=== PATIENT | female | born 1935 | race Caucasian/White ===

== ENCOUNTER 2017-07-17 04:58 | Emergency (ER) | payer MEDICARE, OTHER ==
[2017-07-17] MEDS ORDERED: Acetaminophen 325 MG Tab PO ONE (05:23)
[2017-07-17] MEDS ORDERED: Acetaminophen/HYDROcodone 325-5 MG Tab PO ONE (05:24)
[2017-07-17 05:43] VITALS: BP 115/86
--- NOTE | 2017-07-17 05:57 | EDM.PDOC ---
ED HPI GENERAL MEDICAL PROBLEM - General Chief Complaint: Lower Extremity Injury/Pain Stated Complaint: [facility] Time Seen by Provider: 07/17/17 05:10 Source of Information: Reports: Patient, RN Notes Reviewed - History of Present Illness INITIAL COMMENTS - FREE TEXT/NARRATIVE: 82-year-old lady comes in by [facility] with concern about worsening right knee pain. she does have chronic right knee discomfort worse with motion and weightbearing. However over the last few days this has become worse than usual. Now she is having quite significant discomfort with any type of motion making it hard for her to get up and out of the chair or into or out of bed. Also her legs have been swelling more than usual for the past 2-3 weeks, "ever since [place]". She does have history of hypertension, chronic atrial fibrillation, does have a pacemaker and does take daily baby aspirin and Coumadin in addition to her other medications. No recent fall or injury that she is aware of. She does use a walker at home to help with her ambulation. When asked about what she is been taking for discomfort she states nothing recently. She has taken occasional Tylenol in the past. Right Knee Pain Score (Numeric/FACES): 8 - Related Data Allergies Allergy/AdvReac Type Severity Reaction Status Date / Time No Known Allergies Allergy Verified 07/17/17 05:02 Home Meds: Home Meds Aspirin [Halfprin] 81 mg PO DAILY 07/21/14 [History] Diltiazem HCl [Diltiazem 24Hr ER] 180 mg PO DAILY 07/21/14 [History] Losartan [Cozaar] 50 mg PO DAILY 07/21/14 [History] Metoprolol Succinate 50 mg PO DAILY 07/21/14 [History] Warfarin [Coumadin] 5 mg PO ASDIRECTED 07/21/14 [History] Fluticasone Propionate [Flovent HFA 44 mcg] 2 puff INH DAILY PRN 07/29/14 [ History] Furosemide [Lasix] 2 tab PO BID 07/29/14 [History] Warfarin [Coumadin] 7.5 mg PO ASDIRECTED 07/29/14 [History] atorvaSTATin [Lipitor] 1 tab PO DAILY 07/29/14 [History] Meclizine [Antivert] 25 mg PO Q6H PRN #30 tablet 04/09/16 [Rx] Potassium Chloride [Klor-Con M20] 20 meq PO BID 07/17/17 [History] Past Medical History HEENT History: Reports: Cataract, Hard of Hearing, Impaired Vision Cardiovascular History: Reports: High Cholesterol, Hypertension, Pacemaker Respiratory History: Reports: Bronchitis, Recurrent, SOB Musculoskeletal History: Reports: Arthritis Endocrine/Metabolic History: Reports: Diabetes, Type II, Obesity/BMI 30+ - Past Surgical History GI Surgical History: Reports: Cholecystectomy Social & Family History - Family History Family Medical History: Noncontributory - Tobacco Use Smoking Status *Q: Never Smoker Years of Tobacco use: 10 Used Tobacco, but Quit: Yes Month Tobacco Last Used: 20 years ago Second Hand Smoke Exposure: Yes - Caffeine Use Caffeine Use: Reports: Coffee, Tea Other Caffeine Use: coffee cup every other day;tea every other day - Alcohol Use Days Per Week of Alcohol Use: 0 - Recreational Drug Use Recreational Drug Use: No Review of Systems - Review of Systems Review Of Systems: See Below Constitutional: Denies: Chills, Diaphoresis, Fever Mouth/Throat: Reports: No Symptoms Respiratory: Reports: Shortness of Breath (mild, exertional, chronically) Cardiovascular: Reports: Edema (Worsening swelling both lower legs over the last 2-3 weeks). Denies: Chest Pain GI/Abdominal: Denies: Abdominal Pain, Nausea, Vomiting Musculoskeletal: Reports: Joint Pain (Right knee). Denies: Leg Pain Skin: Reports: Bruising (Scattered small areas of bruising both arms) Neurological: Reports: No Symptoms ED EXAM, GENERAL - Physical Exam Exam: See Below General Appearance: Alert, No Apparent Distress Eye Exam: Bilateral Eye: PERRL Throat/Mouth: Normal Inspection Head: Atraumatic Neck: Supple Respiratory/Chest: No Respiratory Distress. No: Rales, Rhonchi, Wheezing Cardiovascular: Irregularly Irregular GI/Abdominal: Non-Tender Extremities: Pedal Edema (Moderate bilateral), Other (She has for a mild tenderness of the and right knee medially and anteriorly, no visible effusion at this time, not warm or erythematous, there is pain with flexion and extension ) Skin Exam: Warm, Dry, Normal Color Course - Vital Signs Last Recorded V/S: Last Vital Signs Temp 97.6 F 07/17/17 05:03 Pulse 87 07/17/17 05:03 Resp 18 07/17/17 05:03 BP 115/86 07/17/17 05:03 Pulse Ox 92 L 07/17/17 05:03 - Orders/Labs/Meds Orders: Active Orders 24 hr Category Date Time Status Knee Min 4V Rt [CR] Stat Exams 07/17/17 05:23 Taken Labs: Laboratory Tests 07/17/17 07/17/17 07/17/17 Range/Units 05:38 05:38 05:38 WBC 7.64 (3.98-10.04) K/mm3 RBC 4.11 (3.98-5.22) M/mm3 Hgb 10.5 L (11.2-15.7) gm/L Hct 33.7 L (34.1-44.9) % MCV 82.0 (79.4-94.8) fl MCH 25.5 L (25.6-32.2) pg MCHC 31.2 L (32.2-35.5) g/dl RDW Std Deviation 49.3 H (36.4-46.3) fL Plt Count 138 L (182-369) K/mm3 MPV 10.8 (9.4-12.3) fl Neut % (Auto) 72.5 H (34.0-71.1) % Lymph % (Auto) 10.5 L (19.3-51.7) % Bacon % (Auto) 12.4 (4.7-12.5) % Eos % (Auto) 3.8 (0.7-5.8) Baso % (Auto) 0.4 (0.1-1.2) % Neut # (Auto) 5.54 (1.56-6.13) K/mm3 Lymph # (Auto) 0.80 L (1.18-3.74) K/mm3 Bacon # (Auto) 0.95 H (0.24-0.36) K/mm3 Eos # (Auto) 0.29 (0.04-0.36) K/mm3 Baso # (Auto) 0.03 (0.01-0.08) K/mm3 PT 23.4 H (8.0-13.0) SECONDS INR 2.05 Sodium 142 (136-145) mEq/L Potassium 3.6 (3.5-5.1) mEq/L Chloride 103 (98-107) mEq/L Carbon Dioxide 28 (21-32) mEq/L Anion Gap 14.6 (5-15) BUN 60 H (7-18) mg/dL Creatinine 1.3 H (0.55-1.02) mg/dL Est Cr Clr Drug Dosing 28.99 mL/min Estimated GFR (MDRD) 39 (>60) mL/min BUN/Creatinine Ratio 46.2 H (14-18) Glucose 153 H (83-115) mg/dL Calcium 8.6 (8.5-10.1) mg/dL Total Bilirubin 0.9 (0.2-1.0) mg/dL AST 19 (15-37) U/L ALT 25 (14-59) U/L Alkaline Phosphatase 91 (46-116) U/L Total Protein 6.9 (6.4-8.2) g/dl Albumin 3.5 (3.4-5.0) g/dl Globulin 3.4 gm/dL Albumin/Globulin Ratio 1.0 (1-2) Meds: Medications Discontinued Medications Generic Name Dose Route Start Last Admin Trade Name Vicky PRN Reason Stop Dose Admin Acetaminophen 625 mg 07/17/17 05:23 07/17/17 05:33 Tylenol PO 07/17/17 05:24 625 mg NOW ONE Administration Hydrocodone Bitart/Acetaminophen 1 tab 07/17/17 05:24 07/17/17 05:40 [place] 325-5 Mg PO 07/17/17 05:25 1 tab ONETIME ONE Administration - Re-Assessments/Exams Free Text/Narrative Re-Assessment/Exam: 07/17/17 06:56. Patient has significant leg edema, I do not hear rales but am sure she has some mild pulmonary congestion as well. When I asked her about how she is currently taking her furosemide she admits that she is only taking the furosemide once daily rather than the twice daily prescribed because it "makes me pee too much". It sounds like she also does have some chronic incontinence issues which also is not helping her. I did discuss the need for her to go back to the twice daily furosemide as prescribed to help her get rid of the extra fluid which will take at least some of the stress off of her leg and knee. Knee x-rays show tremendous degenerative arthritis, especially of the medial loadbearing area of her knee joint, looks like it is about at bone-on- bone. I am going to put her on very short-term prednisone 20 mg daily for 5 days. I've recommended that she see Dr. Briceno, Orthopedist at [facility] with consideration for possible steroid injection. Discharge instructions as documented. Departure - Departure Time of Disposition: 06:46 Disposition: Home, Self-Care 01 Condition: Fair Clinical Impression: Leg edema, Afib, Atrial fibrillation Degenerative arthritis of right knee Qualifiers: Osteoarthritis type: primary Qualified Code(s): M17.11 - Unilateral primary osteoarthritis, right knee - Discharge Information Referrals: Nara Yeager MD [Primary Care Provider] - Forms: ED Department Discharge Additional Instructions: 2 tablets furosemide twice daily as previously prescribed, first dose right away in the morning and second dose noon or early afternoon,watch your salt extremely carefully, any canned soup or vegetables are extremely high in sodium. Avoid the flour and sugar foods as best you can, keep legs elevated as much as possible when not walking, continue to use your walker to lessen the stress load on your knee., Prednisone 20 mg daily for 5 days, hydrocodone one half tablet 2-3 times daily as needed for severe right knee pain, check your weight when you get home and then keep a daily record if possible to monitor fluid weight loss, follow-up with Dr. Yeager in about 7-10 days, call for appointment, see Dr. Briceno, Orthopedist at [facility] first available appointment. Return to ED as needed. - My Orders Last 24 Hours: My Active Orders 07/17/17 05:23 Knee Min 4V Rt [CR] Stat - Assessment/Plan Last 24 Hours: My Active Orders 07/17/17 05:23 Knee Min 4V Rt [CR] Stat
--- NOTE | 2017-07-17 07:06 | CR ---
Right knee: Four views of the right knee were obtained. Comparison: No prior right knee exam. Severe medial joint space narrowing is noted with medial osteophytes. Lateral joint space is preserved. Minimal spur off the anterior tibial tuberosity and patella compatible with spurring at the attachment of the patellar tendon. No joint effusion is seen. No acute abnormality is identified. Impression: 1. Severe degenerative change within the medial joint. 2. Osteopenia with no acute abnormality being seen. Diagnostic code #2
== END 2017-07-17 07:16 | disposition home or self-care (01) ==
LOC: JD.ED 04:58
DX: I48.91 Unspecified atrial fibrillation (principal); M17.11 Unilateral primary osteoarthritis, right knee; I10 Essential (primary) hypertension; E78.00 Pure hypercholesterolemia, unspecified; E11.9 Type 2 diabetes mellitus without complications; Z79.82 Long term (current) use of aspirin; Z79.01 Long term (current) use of anticoagulants; Z79.899 Other long term (current) drug therapy
CPT/HCPCS: 36415; 73564; 80053; 85025; 85610; 99285; A9270; 99284

== ENCOUNTER 2018-01-13 19:44 | Emergency (ER) | payer MEDICARE, OTHER ==
[2018-01-13 20:42] VITALS: BP 128/72
[2018-01-13] MEDS ORDERED: Ibuprofen 600 MG Tab PO ONE (21:11)
--- NOTE | 2018-01-13 21:17 | EDM.PDOC ---
ED HPI GENERAL MEDICAL PROBLEM - General Chief Complaint: Lower Extremity Injury/Pain Stated Complaint: CAN'T BEND RIGHT KNEE/LEG SWOLLEN Time Seen by Provider: 01/13/18 20:46 Source of Information: Reports: Patient, Family (Daughter) History Limitations: Reports: Altered Mental Status (Patient easily confused, forgetful) - History of Present Illness INITIAL COMMENTS - FREE TEXT/NARRATIVE: The patient states that she has chronic right knee pain, but that it has been worse over the past 2 days, with associated swelling, to the point that she can hardly walk on it or bend it. The patient ordinarily ambulates with a walker. She has not taken any [id number] pain medications for her symptoms. She states that she has had similar flares of pain on several occasions, and upon medical evaluation, is told that it is a flare of her arthritis. She states that when she gets such flares, she is usually prescribed "pills". The patient states that she a history of arthritis in the right knee, and is status post an arthroscopic bone chip removal around 2007. Medical records finds that the patient was seen by Dr. Elliot Ashton on 2017 for similar right knee pain and edema. X-rays found advanced degenerative arthritis. She was referred to Dr. Briceno, but states that she did not follow- up with him. The patient's daughter states that it was winter, therefore the patient didn't want to go, and by the time summer came around, she was feeling better and simply did not want to follow-up. The patient states that she has not had any orthopedic consultation since her arthroscopic surgery around 2007, and therefore has never been told that she might benefit from a knee replacement. The patient has chronic atrial fibrillation, on Coumadin. Her last INR was 2.1 this past week. The patient's PCP is Dr. Nara Yeager. Treatments FOREIGN EXCHANGE POSITION CLERK: Reports: Other (see below) Other Treatments FOREIGN EXCHANGE POSITION CLERK: none Right Knee Pain Score (Numeric/FACES): 10 - Related Data Allergies Allergy/AdvReac Type Severity Reaction Status Date / Time No Known Allergies Allergy Verified 07/17/17 05:02 Home Meds: Home Meds Aspirin [Halfprin] 81 mg PO DAILY 07/21/14 [History] Diltiazem HCl [Diltiazem 24Hr ER] 180 mg PO DAILY 07/21/14 [History] Losartan [Cozaar] 50 mg PO DAILY 07/21/14 [History] Metoprolol Succinate 50 mg PO DAILY 07/21/14 [History] Warfarin [Coumadin] 5 mg PO ASDIRECTED 07/21/14 [History] Fluticasone Propionate [Flovent HFA 44 mcg] 2 puff INH DAILY PRN 07/29/14 [ History] Furosemide [Lasix] 2 tab PO BID 07/29/14 [History] Warfarin [Coumadin] 7.5 mg PO ASDIRECTED 07/29/14 [History] atorvaSTATin [Lipitor] 1 tab PO DAILY 07/29/14 [History] Meclizine [Antivert] 25 mg PO Q6H PRN #30 tablet 04/09/16 [Rx] Potassium Chloride [Klor-Con M20] 20 meq PO BID 07/17/17 [History] Past Medical History HEENT History: Reports: Hard of Hearing, Impaired Vision Cardiovascular History: Reports: Afib (chronic), Heart Failure, High Cholesterol , Hypertension Genitourinary History: Reports: Urinary Incontinence Musculoskeletal History: Reports: Osteoarthritis Endocrine/Metabolic History: Reports: Diabetes, Type II, Obesity/BMI 30+ - Past Surgical History HEENT Surgical History: Reports: Cataract Surgery Cardiovascular Surgical History: Reports: Pacer GI Surgical History: Reports: Cholecystectomy Musculoskeletal Surgical History: Reports: Arthroscopic Knee (right) Social & Family History - Family History Family Medical History: Noncontributory - Tobacco Use Smoking Status *Q: Never Smoker - Caffeine Use Caffeine Use: Reports: Coffee, Soda, Tea Other Caffeine Use: coffee cup every other day;tea every other day - Alcohol Use Alcohol Use History: No - Recreational Drug Use Recreational Drug Use: No - Living Situation & Occupation Living situation: Reports: , Alone Occupation: Retired Review of Systems - Review of Systems Review Of Systems: ROS reveals no pertinent complaints other than HPI. ED EXAM, GENERAL - Physical Exam Exam: See Below Exam Limited By: No Limitations General Appearance: Alert, WD/WN, No Apparent Distress Extremities: Other (No visible abnormality to the right knee, when compared to the left, such as swelling, erythema, ecchymosis, or abrasion. The patient has tenderness to the patellar tendon, but not to the quadriceps tendon, or to the medial, lateral, or posterior right knee. She is able to fully extend the right knee, but has limitation to approximately 90 of flexion, due to pain. There is mild swelling to the right leg when compared to the left, although both legs have about 2+ pitting edema. Neurovascular status of the right lower extremity is intact.) Course - Vital Signs Last Recorded V/S: Last Vital Signs Temp 36.3 C 01/13/18 20:42 Pulse 71 01/13/18 20:42 Resp 20 01/13/18 20:42 BP 128/72 01/13/18 20:42 Pulse Ox 95 01/13/18 20:42 - Orders/Labs/Meds Meds: Medications Discontinued Medications Generic Name Dose Route Start Last Admin Trade Name Vicky PRN Reason Stop Dose Admin Ibuprofen 600 mg 01/13/18 21:11 01/13/18 21:19 Motrin PO 01/13/18 21:12 600 mg ONETIME ONE Administration - Re-Assessments/Exams Free Text/Narrative Re-Assessment/Exam: 01/13/18 21:13 Clinically, the patient is suffering from a flare of her chronic right knee arthritis. This is the same as she has had numerous times in the past. No new injury, therefore I don't feel that repeat x-rays are necessary. Ordinarily, I might place the patient on oral steroids, however, I am concerned that that might cause significant hyperglycemia, as the patient has diabetes. I will instead place the patient on oral ibuprofen, 600 mg every 8 hours, with food. Because the patient is on Coumadin, I don't want her on an NSAID for a prolonged period of time, but a few days until she can follow-up with Ortho should not be a problem. The patient might benefit temporarily from a steroid injection of the knee, but ultimately, she probably needs to have her knee replaced. I will refer her to Dr. Todd. Departure - Departure Time of Disposition: 21:14 Disposition: Home, Self-Care 01 Condition: Good Clinical Impression: Arthritis of right knee - Discharge Information *PRESCRIPTION DRUG MONITORING PROGRAM REVIEWED*: Not Applicable *COPY OF PRESCRIPTION DRUG MONITORING REPORT IN PATIENT RAY: Not Applicable Instructions: Arthritis Referrals: Nara Yeager MD [Primary Care Provider] - Venancio Todd MD [Physician] - Forms: ED Department Discharge Additional Instructions: You were seen in the emergency room for 2 days of worsening of your chronic right knee pain. On examination, you are suffering from a flare of your chronic arthritis. You have been started on the anti-inflammatory medicine ibuprofen. Take 600 mg ( 3 tablets) every 8 hours, with food, as needed for pain. Contact the office of the Orthopedic Surgeon Dr. Todd, first thing in the morning, to make an appointment to be seen as soon as possible. If any other problems, please do not hesitate to return to the ER.
== END 2018-01-13 21:22 | disposition home or self-care (01) ==
LOC: JD.ED 19:44
DX: M17.11 Unilateral primary osteoarthritis, right knee (principal); I11.0 Hypertensive heart disease with heart failure; I50.9 Heart failure, unspecified; I48.91 Unspecified atrial fibrillation; E78.00 Pure hypercholesterolemia, unspecified; E11.9 Type 2 diabetes mellitus without complications; Z79.82 Long term (current) use of aspirin; Z79.899 Other long term (current) drug therapy; Z79.01 Long term (current) use of anticoagulants
CPT/HCPCS: 99283; A9270

== ENCOUNTER 2018-02-10 20:42 | Emergency (ER) | payer MEDICARE, OTHER ==
[2018-02-10 21:14] VITALS: BP 133/70
--- NOTE | 2018-02-10 21:47 | EDM.PDOC ---
ED HPI GENERAL MEDICAL PROBLEM - General Chief Complaint: Cardiovascular Problem Stated Complaint: SWOLLEN LEGS Time Seen by Provider: 02/10/18 21:13 Source of Information: Reports: Patient History Limitations: Reports: No Limitations - History of Present Illness INITIAL COMMENTS - FREE TEXT/NARRATIVE: Patient is a 82-year-old female presents ED complaining of swollen lower legs. Patient states over the past few days she's noticed increased swelling to her ankles and feet. States she does notice with laying flat that the swelling doesn 't dissipate only to increase with sitting in a chair. Patient does live a sedentary lifestyle and sits most hours of the day unless she has to go to the bathroom. Patient sits with her legs bent at the knees on a footstool. Patient has not noticed any increasing weight. There is no orthopnea nor PND. She is able to lay flat on her back and/or on her side. She is on Lasix 80 mg twice a day. There has been no recent changes to her medications. Of note the patient recently had a injection to her right knee by Dr. Todd this past Sunday. She also notes she fell Sunday while going up a set of stairs. She hit her ray and also her right knee. Some slight bruising noted but is still able to weight- bear and ambulate with a walker with no issues. She is not short of breath, no chest pain, no fever no chills, no double pain, or any additional complaints. INR recheck is scheduled for tomorrow. Bilateral Upper Leg Pain Score (Numeric/FACES): 5 - Related Data Allergies Allergy/AdvReac Type Severity Reaction Status Date / Time No Known Allergies Allergy Verified 07/17/17 05:02 Home Meds: Home Meds Aspirin [Halfprin] 81 mg PO DAILY 07/21/14 [History] Diltiazem HCl [Diltiazem 24Hr ER] 180 mg PO DAILY 07/21/14 [History] Losartan [Cozaar] 50 mg PO DAILY 07/21/14 [History] Metoprolol Succinate 50 mg PO DAILY 07/21/14 [History] Warfarin [Coumadin] 5 mg PO ASDIRECTED 07/21/14 [History] Fluticasone Propionate [Flovent HFA 44 mcg] 2 puff INH DAILY PRN 07/29/14 [ History] Furosemide [Lasix] 2 tab PO BID 07/29/14 [History] Warfarin [Coumadin] 7.5 mg PO ASDIRECTED 07/29/14 [History] atorvaSTATin [Lipitor] 1 tab PO DAILY 07/29/14 [History] Meclizine [Antivert] 25 mg PO Q6H PRN #30 tablet 04/09/16 [Rx] Potassium Chloride [Klor-Con M20] 20 meq PO BID 07/17/17 [History] Past Medical History HEENT History: Reports: Hard of Hearing, Impaired Vision Cardiovascular History: Reports: Afib (chronic), Heart Failure, High Cholesterol , Hypertension Respiratory History: Reports: Bronchitis, Recurrent, SOB Genitourinary History: Reports: Urinary Incontinence Musculoskeletal History: Reports: Osteoarthritis Endocrine/Metabolic History: Reports: Diabetes, Type II, Obesity/BMI 30+ - Past Surgical History HEENT Surgical History: Reports: Cataract Surgery Cardiovascular Surgical History: Reports: Pacer GI Surgical History: Reports: Cholecystectomy Musculoskeletal Surgical History: Reports: Arthroscopic Knee (right) Social & Family History - Family History Family Medical History: Noncontributory - Caffeine Use Caffeine Use: Reports: Coffee, Soda, Tea Other Caffeine Use: coffee cup every other day;tea every other day - Living Situation & Occupation Living situation: Reports: , Alone Occupation: Retired ED ROS GENERAL - Review of Systems Review Of Systems: ROS reveals no pertinent complaints other than HPI. ED EXAM, GENERAL - Physical Exam Exam: See Below Exam Limited By: No Limitations General Appearance: Alert, WD/WN, No Apparent Distress Ears: Hearing Grossly Normal Nose: Normal Inspection Throat/Mouth: Normal Voice, No Airway Compromise Neck: Normal Inspection, Supple, Non-Tender, Full Range of Motion Respiratory/Chest: No Respiratory Distress, Lungs Clear, Normal Breath Sounds, No Accessory Muscle Use, Chest Non-Tender Cardiovascular: Normal Peripheral Pulses, Irregularly Irregular Peripheral Pulses: 2+: Radial (L), Radial (R) GI/Abdominal: Normal Bowel Sounds, Soft, Non-Tender, No Organomegaly, No Distention Extremities: Other (Pending edema to her feet, 1+ lower extremities. Small abrasion to the right anterior ray in the late stages of healing. Small bruise to the right anterior knee with minimal pain on examination. She has full range of motion with no sensory deficits.) Neurological: Alert, Oriented, CN II-XII Intact, Normal Cognition, No Motor/ Sensory Deficits Psychiatric: Normal Affect, Normal Mood Skin Exam: Warm, Dry Course - Vital Signs Last Recorded V/S: Last Vital Signs Temp 98.4 F 02/10/18 21:11 Pulse 78 02/10/18 21:11 Resp 18 02/10/18 21:11 BP 133/70 02/10/18 21:11 Pulse Ox 96 02/10/18 21:11 - Re-Assessments/Exams Free Text/Narrative Re-Assessment/Exam: Patient had some artifact on the bedside telemetry concerning for ventricular tachycardia. I do believe this is most likely artifact since it occurs when the patient is talking and/or laughing. Vital signs are stable. She does have a pacemaker in place that is pacing the ventricles only. The underlying rhythm is A-Fib. I have offered to obtain labs to evaluate her INR. I do not believe further workup is required at this point. Since most likely the cause of her complaint is depending gravity secondary to sitting most hours of the day. There is no increased weight,sob, chest pain, PND, orthopnea, or any other concerning findings suggesting that this is acute. Patient and daughter agrees with plan and that this not acute but chronic. If patient would elevate legs and wear compression stocking this would decrease the swelling to her legs. She will followup with her provider tomorrow for reevaluation and INR check. I have instructed the patient to elevate her legs 1 hour in the a.m. and afternoon. Wear her compression stocking if up walking and sitting. If she would experience any new or worsening symptoms to return to the E.D. They had no additional questions or concerns. [id number] We interrogated the patients pacemaker. Spoke with [employer] and states nothing was recorded indicating she was having runs of vtach/vfib. I will discharge patient home. Departure - Departure Time of Disposition: 22:01 Disposition: Home, Self-Care 01 Condition: Good Clinical Impression: Pedal edema Instructions: Peripheral Edema Referrals: Nara Yeager MD [Primary Care Provider] - Forms: ED Department Discharge Additional Instructions: Please wear the compression stockings as directed. Elevate your legs when able to reduce any swelling at least 1 hr in the a.m. and afternoon. Please follow up with your primary care provider tomorrow to recheck your INR. If you should experience any new or worsening symptoms please return back to the ED.
== END 2018-02-10 22:13 | disposition home or self-care (01) ==
LOC: JD.ED 20:42
DX: R60.0 Localized edema (principal); E66.9 Obesity, unspecified; E11.9 Type 2 diabetes mellitus without complications; Z79.82 Long term (current) use of aspirin; Z79.899 Other long term (current) drug therapy
CPT/HCPCS: 99283

== ENCOUNTER 2018-08-08 08:30 | Inpatient (IN) | payer MEDICARE, OTHER ==
--- NOTE | 2018-08-08 08:51 | EDM.PDOC ---
ED HPI GENERAL MEDICAL PROBLEM - General Chief Complaint: Cardiovascular Problem Stated Complaint: BROUGHT IN BY AMBULANCE SWOLLEN LEGS Time Seen by Provider: 08/08/18 08:35 Source of Information: Reports: Patient, RN Notes Reviewed - History of Present Illness INITIAL COMMENTS - FREE TEXT/NARRATIVE: 83-year-old female has been brought here by [facility] for evaluation of severe swelling and achiness bilateral legs. She does have a component of chronic leg swelling and edema but they have become more swollen and edematous over the past week or so. During the night she is having a lot of achy discomfort both legs. She does get somewhat short of breath with ambulation but states that his actually been okay for her. No chest pain cough fever or chills. No abdominal pain nausea or vomiting. She is on Coumadin, furosemide in addition to her other meds and has taken her meds already this morning. Bilateral Leg Pain Score (Numeric/FACES): 9 - Related Data Allergies Allergy/AdvReac Type Severity Reaction Status Date / Time No Known Allergies Allergy Verified 08/08/18 08:36 Home Meds: Home Meds Aspirin [Halfprin] 81 mg PO DAILY 07/21/14 [History] Diltiazem HCl [Diltiazem 24Hr ER] 180 mg PO DAILY 07/21/14 [History] Losartan [Cozaar] 25 mg PO DAILY 07/21/14 [History] Metoprolol Succinate 50 mg PO DAILY 07/21/14 [History] Warfarin [Coumadin] 5 mg PO SUMOTUTHFRSA 07/21/14 [History] Fluticasone Propionate [Flovent HFA 44 mcg] 2 puff INH DAILY PRN 07/29/14 [ History] Furosemide [Lasix] 80 mg PO DAILY 07/29/14 [History] Warfarin [Coumadin] 2.5 mg PO WE 07/29/14 [History] atorvaSTATin [Lipitor] 10 tab PO DAILY 07/29/14 [History] Meclizine [Antivert] 25 mg PO Q6H PRN #30 tablet 04/09/16 [Rx] Potassium Chloride [Klor-Con M20] 20 meq PO BID 07/17/17 [History] Oxybutynin [Oxybutynin ER] 5 mg PO DAILY 08/08/18 [History] Past Medical History HEENT History: Reports: Hard of Hearing, Impaired Vision Cardiovascular History: Reports: Afib (chronic), Heart Failure, High Cholesterol , Hypertension Respiratory History: Reports: Bronchitis, Recurrent, SOB Genitourinary History: Reports: Urinary Incontinence Musculoskeletal History: Reports: Osteoarthritis Endocrine/Metabolic History: Reports: Diabetes, Type II, Obesity/BMI 30+ - Past Surgical History HEENT Surgical History: Reports: Cataract Surgery Cardiovascular Surgical History: Reports: Pacer GI Surgical History: Reports: Cholecystectomy Musculoskeletal Surgical History: Reports: Arthroscopic Knee (right) Social & Family History - Family History Family Medical History: Noncontributory - Caffeine Use Caffeine Use: Reports: Coffee, Soda, Tea Other Caffeine Use: coffee cup every other day;tea every other day - Living Situation & Occupation Living situation: Reports: , Alone Occupation: Retired ED ROS GENERAL - Review of Systems Review Of Systems: See Below Constitutional: Denies: Fever, Chills, Diaphoresis HEENT: Denies: Sinus Problem, Throat Pain Respiratory: Reports: Shortness of Breath. Denies: Pleuritic Chest Pain (Worse with ambulation), Cough Cardiovascular: Denies: Chest Pain Endocrine: Reports: Fatigue GI/Abdominal: Denies: Abdominal Pain, Nausea, Vomiting Musculoskeletal: Reports: Leg Pain (Bilateral leg and ankle pain worse at night the last few nights, especially last night) Skin: Reports: Erythema (She has had an area of increased erythema right lower leg) Neurological: Reports: Dizziness, Difficulty Walking (Generalized), Weakness. Denies: Trouble Speaking ED EXAM, GENERAL - Physical Exam Exam: See Below General Appearance: Alert, No Apparent Distress Eye Exam: Bilateral Eye: PERRL Throat/Mouth: Normal Inspection Head: No: Facial Swelling Neck: Supple, Full Range of Motion, Other (No JVD) Respiratory/Chest: Respiratory Distress. No: Rales, Rhonchi (Mild tachypnea), Wheezing Cardiovascular: Regular Rate, Rhythm GI/Abdominal: Soft, Non-Tender Back Exam: No: CVA Tenderness (L), CVA Tenderness (R) Extremities: Pedal Edema (Moderate bilateral), Redness (Area of increased erythema and tenderness medial proximal lower leg). No: Leg Pain (Calves nontender), Increased Warmth Neurological: Alert, Oriented, No Motor/Sensory Deficits Skin Exam: Warm, Dry Course - Vital Signs Last Recorded V/S: Last Vital Signs Temp 98.8 F 08/08/18 17:41 Pulse 83 08/08/18 17:41 Resp 26 H 08/08/18 17:41 BP 92/44 L 08/08/18 17:57 Pulse Ox 95 08/08/18 17:41 - Orders/Labs/Meds Orders: Active Orders 24 hr Category Date Time Status Peripheral IV Care [RC] Q2HR Care 08/08/18 09:01 Active Peripheral IV Insertion Adult [OM.PC] Stat Oth 08/08/18 09:01 Ordered Medication Orders Acetaminophen (Tylenol) 650 mg PO Q4H PRN PRN Reason: Pain (Mild 1-3)/fever Hydrocodone Bitart/Acetaminophen (Inland 325-5 Mg) 1 tab PO Q4H PRN PRN Reason: Pain Last Admin: 08/08/18 17:50 Dose: 1 tab Aspirin (Halfprin) 81 mg PO DAILY [facility] Hydralazine HCl (Apresoline) 10 mg PO Q8H [facility] Piperacillin Sod/Tazobactam (Sod 4.5 gm/ Sodium Chloride) 100 mls @ 25 mls/hr IV Q8H [facility] Last Admin: 08/08/18 18:02 Dose: 25 mls/hr Isosorbide Dinitrate (Isordil) 10 mg PO TID [facility]ONIT Last Admin: 08/08/18 14:14 Dose: 10 mg Losartan Potassium (Cozaar) 25 mg PO DAILY [facility] Metoprolol Succinate (Toprol Xl) 50 mg PO DAILY [facility] Ondansetron HCl (Zofran Odt) 4 mg PO Q6H PRN PRN Reason: nausea, able to take PO Simvastatin (Zocor) 10 mg PO BEDTIME [facility] Sodium Chloride (Saline Flush) 10 ml FLUSH ASDIRECTED PRN PRN Reason: Keep Vein Open Labs: Laboratory Tests 08/08/18 08/08/18 08/08/18 Range/Units 08:35 08:35 08:35 WBC 6.00 (3.98-10.04) K/mm3 RBC 4.31 (3.98-5.22) M/mm3 Hgb 10.7 L (11.2-15.7) gm/L Hct 34.1 (34.1-44.9) % MCV 79.1 L (79.4-94.8) fl MCH 24.8 L (25.6-32.2) pg MCHC 31.4 L (32.2-35.5) g/dl RDW Std Deviation 50.1 H (36.4-46.3) fL Plt Count 153 L (182-369) K/mm3 MPV 11.6 (9.4-12.3) fl Neut % (Auto) 70.8 (34.0-71.1) % Lymph % (Auto) 9.5 L (19.3-51.7) % [place] % (Auto) 12.3 (4.7-12.5) % Eos % (Auto) 6.3 H (0.7-5.8) Baso % (Auto) 0.8 (0.1-1.2) % Neut # (Auto) 4.24 (1.56-6.13) K/mm3 Lymph # (Auto) 0.57 L (1.18-3.74) K/mm3 [place] # (Auto) 0.74 H (0.24-0.36) K/mm3 Eos # (Auto) 0.38 H (0.04-0.36) K/mm3 Baso # (Auto) 0.05 (0.01-0.08) K/mm3 Manual Slide Review Abnormal smear PT (9.5-12.1) SECONDS INR Sodium 140 (136-145) mEq/L Potassium 3.7 (3.5-5.1) mEq/L Chloride 102 (98-107) mEq/L Carbon Dioxide 31 (21-32) mEq/L Anion Gap 10.7 (5-15) BUN 47 H (7-18) mg/dL Creatinine 1.5 H (0.55-1.02) mg/dL Est Cr Clr Drug Dosing 24.67 mL/min Estimated GFR (MDRD) 33 (>60) mL/min BUN/Creatinine Ratio 31.3 H (14-18) Glucose 120 H (83-115) mg/dL Calcium 9.2 (8.5-10.1) mg/dL Total Bilirubin 0.9 (0.2-1.0) mg/dL AST 20 (15-37) U/L ALT 24 (14-59) U/L Alkaline Phosphatase 118 H (46-116) U/L Troponin I < 0.017 (0.00-0.056) ng/mL C-Reactive Protein 1.5 H* (<1.0) mg/dL NT-Pro-B Natriuret Pep 866 H (0-450) pg/mL Total Protein 6.9 (6.4-8.2) g/dl Albumin 3.5 (3.4-5.0) g/dl Globulin 3.4 gm/dL Albumin/Globulin Ratio 1.0 (1-2) 08/08/18 Range/Units 08:35 WBC (3.98-10.04) K/mm3 RBC (3.98-5.22) M/mm3 Hgb (11.2-15.7) gm/L Hct (34.1-44.9) % MCV (79.4-94.8) fl MCH (25.6-32.2) pg MCHC (32.2-35.5) g/dl RDW Std Deviation (36.4-46.3) fL Plt Count (182-369) K/mm3 MPV (9.4-12.3) fl Neut % (Auto) (34.0-71.1) % Lymph % (Auto) (19.3-51.7) % [place] % (Auto) (4.7-12.5) % Eos % (Auto) (0.7-5.8) Baso % (Auto) (0.1-1.2) % Neut # (Auto) (1.56-6.13) K/mm3 Lymph # (Auto) (1.18-3.74) K/mm3 [place] # (Auto) (0.24-0.36) K/mm3 Eos # (Auto) (0.04-0.36) K/mm3 Baso # (Auto) (0.01-0.08) K/mm3 Manual Slide Review PT 31.2 H (9.5-12.1) SECONDS INR 2.92 Sodium (136-145) mEq/L Potassium (3.5-5.1) mEq/L Chloride (98-107) mEq/L Carbon Dioxide (21-32) mEq/L Anion Gap (5-15) BUN (7-18) mg/dL Creatinine (0.55-1.02) mg/dL Est Cr Clr Drug Dosing mL/min Estimated GFR (MDRD) (>60) mL/min BUN/Creatinine Ratio (14-18) Glucose (83-115) mg/dL Calcium (8.5-10.1) mg/dL Total Bilirubin (0.2-1.0) mg/dL AST (15-37) U/L ALT (14-59) U/L Alkaline Phosphatase (46-116) U/L Troponin I (0.00-0.056) ng/mL C-Reactive Protein (<1.0) mg/dL NT-Pro-B Natriuret Pep (0-450) pg/mL Total Protein (6.4-8.2) g/dl Albumin (3.4-5.0) g/dl Globulin gm/dL Albumin/Globulin Ratio (1-2) Meds: Medications Generic Name Dose Route Start Last Admin Trade Name Freq PRN Reason Stop Dose Admin Acetaminophen 650 mg 08/08/18 11:20 Tylenol PO Q4H PRN Pain (Mild 1-3)/fever Hydrocodone Bitart/Acetaminophen 1 tab 08/08/18 11:20 08/08/18 17:50 Inland 325-5 Mg PO 1 tab Q4H PRN Administration Pain Aspirin 81 mg 08/09/18 09:00 Halfprin PO DAILY [facility]ON[facility] Hydralazine HCl 10 mg 08/09/18 00:00 Apresoline PO Q8H [facility]ON[facility] Piperacillin Sod/Tazobactam 100 mls @ 25 mls/hr 08/08/18 19:00 08/08/18 18:02 Sod 4.5 gm/ Sodium Chloride IV 25 mls/hr Q8H [facility]ONIT Administration Isosorbide Dinitrate 10 mg 08/08/18 15:00 08/08/18 14:14 Isordil PO 10 mg TID RONIT Administration Losartan Potassium 25 mg 08/09/18 09:00 Cozaar PO DAILY [facility] Metoprolol Succinate 50 mg 08/09/18 09:00 Toprol Xl PO DAILY [facility] Ondansetron HCl 4 mg 08/08/18 11:20 Zofran Odt PO Q6H PRN nausea, able to take PO Simvastatin 10 mg 08/08/18 21:00 Zocor PO BEDTIME [facility] Sodium Chloride 10 ml 08/08/18 11:20 Saline Flush FLUSH ASDIRECTED PRN Keep Vein Open Discontinued Medications Generic Name Dose Route Start Last Admin Trade Name Freq PRN Reason Stop Dose Admin Furosemide 40 mg 08/08/18 09:05 08/08/18 09:09 Lasix IVPUSH 08/08/18 09:06 40 mg NOW ONE Administration Furosemide Confirm 08/08/18 09:07 08/08/18 09:11 Lasix Administered 08/08/18 09:08 Not Given Dose 40 mg .ROUTE .STK-MED ONE Hydralazine HCl 10 mg 08/08/18 12:30 08/08/18 15:23 Apresoline PO 10 mg Q8H [facility]ONIT Administration Piperacillin Sod/Tazobactam 100 mls @ 200 mls/hr 08/08/18 11:00 08/08/18 11: 03 Sod 4.5 gm/ Sodium Chloride IV 08/08/18 11:29 200 mls/hr ONETIME ONE Administration Sodium Chloride Confirm 08/08/18 10:56 08/08/18 11:04 Normal Saline Administered 08/08/18 10:57 Not Given Dose 100 mls @ as directed .ROUTE .STK-MED ONE Piperacillin Sod/Tazobactam Sod Confirm 08/08/18 10:53 08/08/18 11:04 Piperacil-Tazobact Administered 08/08/18 10:54 Not Given Dose 4.5 gm .ROUTE .STK-MED ONE Sodium Chloride 10 ml 08/08/18 09:01 08/08/18 09:11 Saline Flush FLUSH 10 ml ASDIRECTED PRN Administration Keep Vein Open - Re-Assessments/Exams Free Text/Narrative Re-Assessment/Exam: 08/08/18 10:07 Troponin has come back normal, BNP only very mildly elevated, white blood count normal, C-reactive protein 1.5. After questioning patient further she states that her provider Dr. Yeager reduced her furosemide from 120 mg daily to 80 about 2-3 weeks ago because she was "having too void too much". That helps explain her increased leg swelling and edema at this time. Her chest x-ray does show cardiomegaly, mild to moderate pulmonary congestion, sats are good but she is tachypnic. There is concern for cellulitis right lower extremity as well with increased swelling of anterior medial distal leg and localized warmth and erythema as well. We have given furosemide 40 mg IV. We'll plan to admit for further treatment. We'll also order Zosyn 4.5 g IV at this time. 08/08/18 10:11. Of note pro time, INR is therapeutic so there should not be a DVT present at this time. Departure - Departure Time of Disposition: 10:12 Disposition: Admitted As Inpatient 64 Condition: Fair Clinical Impression: Renal insufficiency Congestive heart failure Qualifiers: Heart failure type: right-sided Heart failure chronicity: acute on chronic Qualified Code(s): I50.813 - Acute on chronic right heart failure Cellulitis Qualifiers: Site of cellulitis: extremity Site of cellulitis of extremity: lower extremity ED Communication - Discussed Case With (1) Discussed Case With (1): Admitting Provider (Dr Sun, decision to admit at about 10:22) - My Orders Last 24 Hours: My Active Orders 08/08/18 09:01 Peripheral IV Care [RC] Q2HR Peripheral IV Insertion Adult [OM.PC] Stat - Assessment/Plan Last 24 Hours: My Active Orders 08/08/18 09:01 Peripheral IV Care [RC] Q2HR Peripheral IV Insertion Adult [OM.PC] Stat
[2018-08-08] MEDS ORDERED: Sodium Chloride 0.9% 10 ML Syringe FLUSH PRN ×2 (09:01→11:20)
[2018-08-08] MEDS ORDERED: Furosemide 40 MG/4 ML VIAL IVPUSH ONE (09:05)
[2018-08-08] MEDS ORDERED: Furosemide 40 MG/4 ML VIAL ONE (09:07)
[2018-08-08] MEDS ORDERED: Piperacillin/Tazobactam 4.5 GM in Sodium Chloride 0.9% 100 ML IV SCH (10:15)
--- NOTE | 2018-08-08 10:18 | CR ---
Chest: Portable view of the chest was obtained. Heart size at the upper limits of normal. Central lung markings are slightly increased. Difficult to exclude mild pulmonary vascular congestion. Unichamber pacemaker is noted. Bony structures are grossly intact. Impression: 1. Possible mild CHF. Diagnostic code #3
[2018-08-08] MEDS ORDERED: Piperacillin/Tazobactam 4.5 GM AdvVial ONE (10:53)
[2018-08-08] MEDS ORDERED: Sodium Chloride 0.9% 100 ML ONE (10:56)
[2018-08-08] MEDS ORDERED: Piperacillin/Tazobactam 4.5 GM in Sodium Chloride 0.9% 100 ML IV ONE (11:00)
[2018-08-08] MEDS ORDERED: Ondansetron 4 MG Tab.DIS PO PRN (11:20)
[2018-08-08] MEDS: Isosorbide Dinitrate 10 MG Tab PO SCH ×2 (14:14→20:53)
[2018-08-08] MEDS: hydrALAZINE 10 MG Tab PO SCH ×2 (14:19→15:23)
--- NOTE | 2018-08-08 16:49 | PCM.HP ---
H&P History of Present Illness - General Date of Service: 08/08/18 Admit Problem/Dx: Admission Diagnosis/Problem Admission Diagnosis/Problem Congestive heart failure Source of Information: Patient - History of Present Illness Initial Comments - Free Text/Narative: This 83-year-old female with known diastolic heart failure was brought in to the emergency room by ambulance after having worsening of lower extremity foot pain and edema. Patient states that over the last 4-8 weeks she has had a progressively worsening lower extremity edema with a 20-30 pound weight gain. Patient was seen by her primary care provider and had her Lasix increased to 80 mg from 40 mg and started on oxybutynin due to concurrent complaints of increased urination. Patient denies any shortness of breath, cough, dyspnea on exertion, chest pain orthopnea, or PND. She sleeps on one pillow on her back. She denies any history of sleep difficulties other than having to get up to urinate. Patient also states that she has increased redness and swelling in the right lower extremity worse than left. The right lower extremity is tender and red. Patient to see cardiology for atrial fibrillation and her diastolic dysfunction. She does not know when her last echocardiogram was done. Echocardiogram done on July 21, 2014 did show an ejection fraction of 50-55% with severely dilated left and right atrium. She had mild aortic valve sclerosis with moderate mitral valve regurgitation. Moderate tricuspid valve regurgitation. Right ventricular systolic pressure was moderate to severely elevated at 59.8 mmHg. In the emergency room patient was given 40 mg of Lasix IV. Her creatinine is slightly elevated over her most recent last month of 1.3 up to 1.5. Bilateral Leg Pain Score (Numeric/FACES): 3 - Related Data Allergies/Adverse Reactions: Allergies Allergy/AdvReac Type Severity Reaction Status Date / Time No Known Allergies Allergy Verified 08/08/18 08:36 Home Medications: Home Meds Aspirin [Halfprin] 81 mg PO DAILY 07/21/14 [History] Diltiazem HCl [Diltiazem 24Hr ER] 180 mg PO DAILY 07/21/14 [History] Losartan [Cozaar] 25 mg PO DAILY 07/21/14 [History] Metoprolol Succinate 50 mg PO DAILY 07/21/14 [History] Warfarin [Coumadin] 5 mg PO SUMOTUTHFRSA 07/21/14 [History] Fluticasone Propionate [Flovent HFA 44 mcg] 2 puff INH DAILY PRN 07/29/14 [ History] Furosemide [Lasix] 80 mg PO DAILY 07/29/14 [History] Warfarin [Coumadin] 2.5 mg PO WE 07/29/14 [History] atorvaSTATin [Lipitor] 10 tab PO DAILY 07/29/14 [History] Meclizine [Antivert] 25 mg PO Q6H PRN #30 tablet 04/09/16 [Rx] Potassium Chloride [Klor-Con M20] 20 meq PO BID 07/17/17 [History] Oxybutynin [Oxybutynin ER] 5 mg PO DAILY 08/08/18 [History] Past Medical History HEENT History: Reports: Hard of Hearing, Impaired Vision Other HEENT History: glasses Cardiovascular History: Reports: Afib, Heart Failure, High Cholesterol, Hypertension Respiratory History: Reports: Bronchitis, Recurrent, SOB Other Gastrointestinal History: chronic loose stools. Genitourinary History: Reports: Urinary Incontinence [employer]ORDINATOR History: Reports: Musculoskeletal History: Reports: Osteoarthritis Other Musculoskeletal History: cortisone shot on [address] Todd on right knee. Endocrine/Metabolic History: Reports: Diabetes, Type II, Obesity/BMI 30+ Other Endocrine/Metabolic History: states is diet controlled diabetic, "I'm not on any medication." Hematologic History: Reports: Anemia, Iron Deficiency - Infectious Disease History Infectious Disease History: Reports: Chicken Pox, Mumps, Shingles - Past Surgical History HEENT Surgical History: Reports: Cataract Surgery Cardiovascular Surgical History: Reports: Pacer GI Surgical History: Reports: Cholecystectomy Musculoskeletal Surgical History: Reports: Arthroscopic Knee Social & Family History - Family History Family Medical History: Noncontributory - Tobacco Use Smoking Status *Q: Never Smoker Second Hand Smoke Exposure: No - Caffeine Use Caffeine Use: Reports: Coffee Other Caffeine Use: Cup of coffee some mornings. - Recreational Drug Use Recreational Drug Use: No - Living Situation & Occupation Living situation: Reports: , Alone Occupation: Retired H&P Review of Systems - Review of Systems: Review Of Systems: See Below General: Reports: Weight Gain HEENT: Reports: No Symptoms Pulmonary: Reports: No Symptoms. Denies: Shortness of Breath, Cough Cardiovascular: Reports: No Symptoms. Denies: Chest Pain, Palpitations, Dyspnea on Exertion, Orthopnea, PND Gastrointestinal: Reports: No Symptoms. Denies: Abdominal Pain, Black Stool, Hematochezia Genitourinary: Reports: Frequency, Burning. Denies: Pain Musculoskeletal: Reports: Foot Pain Skin: Reports: No Symptoms Psychiatric: Reports: No Symptoms. Denies: Confusion, Depression Neurological: Reports: No Symptoms Exam - Exam Exam: See Below - Vital Signs Vital Signs: Last Vital Signs Temp 98.2 F 08/08/18 15:26 Pulse 77 08/08/18 15:36 Resp 30 H 08/08/18 15:26 BP 99/47 L 08/08/18 15:26 Pulse Ox 94 L 08/08/18 15:36 Weight: 217 lb - Exam General: Alert, Oriented HEENT: Conjunctiva Clear, Mucosa Moist & Elida, Pupils Equal, Pupils Reactive Neck: Supple, Trachea Midline Lungs: Clear to Auscultation, Normal Respiratory Effort Cardiovascular: Irregular Rhythm, Systolic Murmur GI/Abdominal Exam: Normal Bowel Sounds, Soft, Non-Tender, No Organomegaly, No Distention Extremities: Pedal Edema (Right lower extremity redness and tenderness.) Skin: Warm, Dry Neurological: Cranial Nerves Intact Neuro Extensive - Mental Status: Alert, Oriented x3, Normal Mood/Affect Neuro Extensive - Motor, Sensory, Reflexes: CN II-XII Intact Psychiatric: Alert, Normal Affect, Normal Mood - Patient Data Lab Results Last 24 hrs: Laboratory Results - last 24 hr 08/08/18 08/08/18 08/08/18 Range/Units 08:35 08:35 08:35 WBC 6.00 (3.98-10.04) K/mm3 RBC 4.31 (3.98-5.22) M/mm3 Hgb 10.7 L (11.2-15.7) gm/L Hct 34.1 (34.1-44.9) % MCV 79.1 L (79.4-94.8) fl MCH 24.8 L (25.6-32.2) pg MCHC 31.4 L (32.2-35.5) g/dl RDW Std Deviation 50.1 H (36.4-46.3) fL Plt Count 153 L (182-369) K/mm3 MPV 11.6 (9.4-12.3) fl Neut % (Auto) 70.8 (34.0-71.1) % Lymph % (Auto) 9.5 L (19.3-51.7) % Rankin % (Auto) 12.3 (4.7-12.5) % Eos % (Auto) 6.3 H (0.7-5.8) Baso % (Auto) 0.8 (0.1-1.2) % Neut # (Auto) 4.24 (1.56-6.13) K/mm3 Lymph # (Auto) 0.57 L (1.18-3.74) K/mm3 Rankin # (Auto) 0.74 H (0.24-0.36) K/mm3 Eos # (Auto) 0.38 H (0.04-0.36) K/mm3 Baso # (Auto) 0.05 (0.01-0.08) K/mm3 Manual Slide Review Abnormal smear PT (9.5-12.1) SECONDS INR Sodium 140 (136-145) mEq/L Potassium 3.7 (3.5-5.1) mEq/L Chloride 102 (98-107) mEq/L Carbon Dioxide 31 (21-32) mEq/L Anion Gap 10.7 (5-15) BUN 47 H (7-18) mg/dL Creatinine 1.5 H (0.55-1.02) mg/dL Est Cr Clr Drug Dosing 24.67 mL/min Estimated GFR (MDRD) 33 (>60) mL/min BUN/Creatinine Ratio 31.3 H (14-18) Glucose 120 H (83-115) mg/dL Calcium 9.2 (8.5-10.1) mg/dL Total Bilirubin 0.9 (0.2-1.0) mg/dL AST 20 (15-37) U/L ALT 24 (14-59) U/L Alkaline Phosphatase 118 H (46-116) U/L Troponin I < 0.017 (0.00-0.056) ng/mL C-Reactive Protein 1.5 H* (<1.0) mg/dL NT-Pro-B Natriuret Pep 866 H (0-450) pg/mL Total Protein 6.9 (6.4-8.2) g/dl Albumin 3.5 (3.4-5.0) g/dl Globulin 3.4 gm/dL Albumin/Globulin Ratio 1.0 (1-2) 02/07/19 Range/Units 08:35 WBC (3.98-10.04) K/mm3 RBC (3.98-5.22) M/mm3 Hgb (11.2-15.7) gm/L Hct (34.1-44.9) % MCV (79.4-94.8) fl MCH (25.6-32.2) pg MCHC (32.2-35.5) g/dl RDW Std Deviation (36.4-46.3) fL Plt Count (182-369) K/mm3 MPV (9.4-12.3) fl Neut % (Auto) (34.0-71.1) % Lymph % (Auto) (19.3-51.7) % Rankin % (Auto) (4.7-12.5) % Eos % (Auto) (0.7-5.8) Baso % (Auto) (0.1-1.2) % Neut # (Auto) (1.56-6.13) K/mm3 Lymph # (Auto) (1.18-3.74) K/mm3 Rankin # (Auto) (0.24-0.36) K/mm3 Eos # (Auto) (0.04-0.36) K/mm3 Baso # (Auto) (0.01-0.08) K/mm3 Manual Slide Review PT 31.2 H (9.5-12.1) SECONDS INR 2.92 Sodium (136-145) mEq/L Potassium (3.5-5.1) mEq/L Chloride (98-107) mEq/L Carbon Dioxide (21-32) mEq/L Anion Gap (5-15) BUN (7-18) mg/dL Creatinine (0.55-1.02) mg/dL Est Cr Clr Drug Dosing mL/min Estimated GFR (MDRD) (>60) mL/min BUN/Creatinine Ratio (14-18) Glucose (83-115) mg/dL Calcium (8.5-10.1) mg/dL Total Bilirubin (0.2-1.0) mg/dL AST (15-37) U/L ALT (14-59) U/L Alkaline Phosphatase (46-116) U/L Troponin I (0.00-0.056) ng/mL C-Reactive Protein (<1.0) mg/dL NT-Pro-B Natriuret Pep (0-450) pg/mL Total Protein (6.4-8.2) g/dl Albumin (3.4-5.0) g/dl Globulin gm/dL Albumin/Globulin Ratio (1-2) Result Diagrams: 08/08/18 08:35 08/08/18 08:35 - Problem List (1) Congestive heart failure SNOMED Code(s): 64089084 ICD Code: I50.9 - HEART FAILURE, UNSPECIFIED Status: Acute Current Visit : Yes Qualifiers: Heart failure type: right-sided Heart failure chronicity: acute on chronic Qualified Code(s): I50.813 - Acute on chronic right heart failure (2) Cellulitis SNOMED Code(s): 326009051 ICD Code: L03.90 - CELLULITIS, UNSPECIFIED Status: Acute Current Visit: Yes Qualifiers: Site of cellulitis: extremity Site of cellulitis of extremity: lower extremity (3) Renal insufficiency SNOMED Code(s): 978284551, 317690472 ICD Code: N28.9 - DISORDER OF KIDNEY AND URETER, UNSPECIFIED Status: Acute Current Visit: Yes (4) Leg edema SNOMED Code(s): 345551444 ICD Code: R60.0 - LOCALIZED EDEMA Status: Acute Current Visit: No (5) Afib, Atrial fibrillation SNOMED Code(s): 99453560 ICD Code: I48.91 - UNSPECIFIED ATRIAL FIBRILLATION Status: Chronic Current Visit: No Problem List Initiated/Reviewed/Updated: Yes Orders Last 24hrs: Active Orders 24 hr Category Date Time Status Admission Status [Patient Status] [ADT] Routine ADT 08/08/18 10:56 Active Height and Weight [] 04 Care 08/08/18 11:20 Active Intake and Output [] 04,16 Care 08/08/18 11:38 Active Notify Provider Vital Signs [] ASDIRECTED Care 08/08/18 11:39 Active Overnight Pulse Oximetry [Overnight Pulse Oximetry] [ Care 08/08/18 15:29 Active ] Click to Edit Oxygen Therapy [] PRN Care 08/08/18 11:38 Active Peripheral IV Care [] Q2HR Care 08/08/18 09:01 Active Pulse Oximetry [] PRN Care 08/08/18 11:39 Active Up to Chair [RC] BID Care 08/08/18 11:20 Active VTE/DVT Education [RC] PER UNIT ROUTINE Care 08/08/18 11:38 Active Vital Signs [RC] Q4HR Care 08/08/18 11:38 Active PT Evaluation and Treatment [CONS] Routine Cons 08/08/18 11:20 Active 2 Gram Sodium Diet [DIET] Diet 08/08/18 Dinner Active Chest 2V [CR] AM Exams 08/09/18 05:11 Ordered BLOOD GAS ARTERIAL [BG] Timed Lab 08/09/18 06:00 Ordered CBC WITH AUTO DIFF [HEME] AM Lab 08/09/18 05:11 Ordered COMPREHENSIVE METABOLIC PN,CMP [CHEM] AM Lab 08/09/18 05:11 Ordered INR,PT,PROTHROMBIN TIME [COAG] AM Lab 08/09/18 05:11 Ordered MAGNESIUM [CHEM] AM Lab 08/09/18 05:11 Ordered PHOSPHORUS [CHEM] AM Lab 08/09/18 05:11 Ordered PRO B-TYPE NATRIUR PEPT,BNPPRO [CHEM] Routine Lab 08/09/18 05:00 Ordered PTT,PARTIAL THROMBOPLSTIN TIME [COAG] AM Lab 08/09/18 05:11 Ordered TROPONIN I [CHEM] AM Lab 08/09/18 05:11 Ordered TSH [CHEM] AM Lab 08/10/18 05:11 Ordered UA W/MICROSCOPIC [URIN] Stat Lab 08/08/18 11:20 Ordered Acetaminophen [Tylenol] Med 08/08/18 11:20 Active 650 mg PO Q4H PRN Acetaminophen/HYDROcodone [Hills 325-5 MG] Med 08/08/18 11:20 Active 1 tab PO Q4H PRN Aspirin [Halfprin] Med 08/09/18 09:00 Active 81 mg PO DAILY Diltiazem HCl [Diltiazem 24Hr ER] Med 08/09/18 09:00 Unverified DOSE UNIT RTE FREQ Isosorbide Dinitrate [Isordil] Med 08/08/18 15:00 Active 10 mg PO TID Losartan [Cozaar] Med 08/09/18 09:00 Active 25 mg PO DAILY Metoprolol Succinate [Toprol XL] Med 08/09/18 09:00 Active 50 mg PO DAILY Ondansetron [Zofran ODT] Med 08/08/18 11:20 Active 4 mg PO Q6H PRN Piperacillin/Tazobactam [Piperacil-Tazobact] 4.5 gm Med 08/08/18 19:00 Active Sodium Chloride 0.9% [Normal Saline] 100 ml IV Q8H Simvastatin [Zocor] Med 08/08/18 21:00 Active 10 mg PO BEDTIME Sodium Chloride 0.9% [Saline Flush] Med 08/08/18 11:20 Active 10 ml FLUSH ASDIRECTED PRN hydrALAZINE [Apresoline] Med 08/09/18 00:00 Active 10 mg PO Q8H Peripheral IV Insertion Adult [OM.PC] Stat Oth 08/08/18 09:01 Ordered Saline Lock Insert [OM.PC] Routine Oth 08/08/18 11:20 Ordered Resuscitation Status Routine Resus Stat 08/08/18 11:20 Ordered Medication Orders Acetaminophen (Tylenol) 650 mg PO Q4H PRN PRN Reason: Pain (Mild 1-3)/fever Hydrocodone Bitart/Acetaminophen (Hills 325-5 Mg) 1 tab PO Q4H PRN PRN Reason: Pain Aspirin (Halfprin) 81 mg PO DAILY RONIT Hydralazine HCl (Apresoline) 10 mg PO Q8H RONIT Piperacillin Sod/Tazobactam (Sod 4.5 gm/ Sodium Chloride) 100 mls @ 25 mls/hr IV Q8H RONIT Isosorbide Dinitrate (Isordil) 10 mg PO TID RONIT Last Admin: 08/08/18 14:14 Dose: 10 mg Losartan Potassium (Cozaar) 25 mg PO DAILY RONIT Metoprolol Succinate (Toprol Xl) 50 mg PO DAILY RONIT Ondansetron HCl (Zofran Odt) 4 mg PO Q6H PRN PRN Reason: nausea, able to take PO Simvastatin (Zocor) 10 mg PO BEDTIME RONIT Sodium Chloride (Saline Flush) 10 ml FLUSH ASDIRECTED PRN PRN Reason: Keep Vein Open Assessment/Plan Comment:: 1. Congestive heart failure - Patient BNP was slightly elevated just over 800. - Checks x-ray was portable did show what appears to be an enlarged cardiac silhouette with mild CHF. - Patient's renal function has worsened on the increase dose of furosemide. We will start afterload reduction with hydralazine and isosorbide dinitrate -Strict I's and O's and daily weights. Follow blood pressure closely. - Patient received Lasix 40 mg IV in the emergency room. We will hold diuretics today and reevaluate in the morning. - Previous echocardiogram done in 2014 showed pulmonary hypertension. We will repeat an echocardiogram today and do an overnight oximetry. 2. Lower extremity edema - Patient's right-sided heart failure is contributing to her lower extremity edema. - Elevate legs at all times. - Afterload reduction with hydralazine and isosorbide dinitrate. - Venous Doppler will be ordered. 3. Right lower extremity cellulitis - Patient start on Zosyn. 4. Chronic renal insufficiency - Renal insufficiency has worsened slightly. We will reevaluate in the morning need for diuretics. 5. Atrial fibrillation with anticoagulation - INR is 2.9. - Patient's Coumadin will be held today and repeat INR tomorrow. Patient is on antibiotics which can increase her INR.. - Continue home flecainide, diltiazem, and metoprolol for rate control.
[2018-08-08] MEDS: Acetaminophen/HYDROcodone 325-5 MG Tab PO PRN (17:50)
[2018-08-08] MEDS: Piperacillin/Tazobactam 4.5 GM in Sodium Chloride 0.9% 100 ML IV SCH (18:02)
[2018-08-08] MEDS: Simvastatin 10 MG Tab PO SCH (20:53)
[2018-08-09] MEDS: hydrALAZINE 10 MG Tab PO SCH ×3 (00:02→16:14)
[2018-08-09] MEDS: Piperacillin/Tazobactam 4.5 GM in Sodium Chloride 0.9% 100 ML IV SCH ×3 (04:03→18:55)
[2018-08-09] MEDS: Acetaminophen/HYDROcodone 325-5 MG Tab PO PRN ×3 (04:13→16:15)
[2018-08-09] MEDS: Aspirin 81 MG Tab.EC PO SCH (08:14)
--- NOTE | 2018-08-09 08:14 | US ---
Bilateral lower extremity deep venous ultrasound: Duplex and color flow imaging was obtained of the right and left common femoral, proximal greater saphenous, superficial femoral and popliteal veins. Posterior tibial and peroneal veins were not well seen due to soft tissue edema on both sides. Bilateral popliteal cysts are seen. Cyst on the left side measures 3.4 cm and cyst on the right side measures 4.4 cm. Subcutaneous edema is noted within both lower extremities. Visualized veins show normal phasic flow, augmentation and compression. Impression: 1. Soft tissue edema within both lower extremities. Bilateral popliteal cysts are seen. 2. Poorly seen posterior tibial and peroneal veins of both sides due to soft tissue edema. 3. No evidence of deep venous thrombosis is otherwise seen. Diagnostic code #2
[2018-08-09] MEDS: Metoprolol Succinate 50 MG Tab.ER PO SCH (08:15)
[2018-08-09] MEDS: Isosorbide Dinitrate 10 MG Tab PO SCH ×3 (08:16→22:34)
[2018-08-09] MEDS: Losartan 25 MG Tab PO SCH (08:16)
--- NOTE | 2018-08-09 08:46 | PCM.PN ---
- General Info Date of Service: 08/09/18 Admission Dx/Problem (Free Text): Admission Diagnosis/Problem Admission Diagnosis/Problem Congestive heart failure Subjective Update: Admission details: This 83-year-old female with known diastolic heart failure was brought in to the emergency room by ambulance after having worsening of lower extremity foot pain and edema. Patient states that over the last 4-8 weeks she has had a progressively worsening lower extremity edema with a 20-30 pound weight gain. Patient was seen by her primary care provider and had her Lasix increased to 80 mg from 40 mg and started on oxybutynin due to concurrent complaints of increased urination. Patient denies any shortness of breath, cough, dyspnea on exertion, chest pain orthopnea, or PND. She sleeps on one pillow on her back. She denies any history of sleep difficulties other than having to get up to urinate. Patient also states that she has increased redness and swelling in the right lower extremity worse than left. The right lower extremity is tender and red. Patient to see cardiology for atrial fibrillation and her diastolic dysfunction. She does not know when her last echocardiogram was done. Echocardiogram done on July 21, 2014 did show an ejection fraction of 50-55% with severely dilated left and right atrium. She had mild aortic valve sclerosis with moderate mitral valve regurgitation. Moderate tricuspid valve regurgitation. Right ventricular systolic pressure was moderate to severely elevated at 59.8 mmHg. In the emergency room patient was given 40 mg of Lasix IV. Her creatinine is slightly elevated over her most recent last month of 1.3 up to 1.5. August 09, 2018 Patient states that she is doing about the same as yesterday. She does state that her right ankle pain is improved but still painful. She was unable to give a numerical score. She denies any shortness of breath, fever, chills, or cough. Blood pressure was stable overnight with good diuresis. Echocardiogram done yesterday, August 08, 2018, demonstrated a left ventricular ejection fraction of 60-65%, severely dilated left and right atrium , moderate mitral valve regurgitation, trace aortic valve regurgitation, moderate tricuspid valve regurgitation, and the right ventricular systolic pressure was moderate to severely elevated at 55.7 mmHg. Lower extremity Dopplers were negative for DVT. - Patient Data Vitals - Most Recent: Last Vital Signs Temp 98.1 F 08/09/18 08:13 Pulse 80 08/09/18 08:15 Resp 22 H 08/09/18 08:13 BP 117/49 L 08/09/18 08:16 Pulse Ox 92 L 08/09/18 08:13 Weight - Most Recent: 215 lb 3 oz I&O - Last 24 Hours: Intake & Output 08/08/18 08/09/18 08/09/18 22:59 06:59 14:59 Intake Total 1160 170 Output Total 610 525 125 Balance 550 -355 -125 Lab Results Last 24 Hours: Laboratory Results - last 24 hr 08/08/18 08/08/18 08/08/18 Range/Units 08:35 08:35 08:35 WBC 6.00 (3.98-10.04) K/mm3 RBC 4.31 (3.98-5.22) M/mm3 Hgb 10.7 L (11.2-15.7) gm/L Hct 34.1 (34.1-44.9) % MCV 79.1 L (79.4-94.8) fl MCH 24.8 L (25.6-32.2) pg MCHC 31.4 L (32.2-35.5) g/dl RDW Std Deviation 50.1 H (36.4-46.3) fL Plt Count 153 L (182-369) K/mm3 MPV 11.6 (9.4-12.3) fl Neut % (Auto) 70.8 (34.0-71.1) % Lymph % (Auto) 9.5 L (19.3-51.7) % [place] % (Auto) 12.3 (4.7-12.5) % Eos % (Auto) 6.3 H (0.7-5.8) Baso % (Auto) 0.8 (0.1-1.2) % Neut # (Auto) 4.24 (1.56-6.13) K/mm3 Lymph # (Auto) 0.57 L (1.18-3.74) K/mm3 [place] # (Auto) 0.74 H (0.24-0.36) K/mm3 Eos # (Auto) 0.38 H (0.04-0.36) K/mm3 Baso # (Auto) 0.05 (0.01-0.08) K/mm3 Manual Slide Review Abnormal smear PT (9.5-12.1) SECONDS INR APTT (24-31) SECONDS Puncture Site ABG pH (7.35-7.45) ABG pCO2 (35.0-45.0) mmHg ABG pO2 (80.0-100.0) mmHg ABG HCO3 (22.0-26.0) meq/L ABG O2 Saturation (96.0-97.0) % ABG Base Excess (-2-2.0) Thierno Test A-a Gradient mmHg Sodium 140 (136-145) mEq/L Potassium 3.7 (3.5-5.1) mEq/L Chloride 102 (98-107) mEq/L Carbon Dioxide 31 (21-32) mEq/L Anion Gap 10.7 (5-15) BUN 47 H (7-18) mg/dL Creatinine 1.5 H (0.55-1.02) mg/dL Est Cr Clr Drug Dosing 24.67 mL/min Estimated GFR (MDRD) 33 (>60) mL/min BUN/Creatinine Ratio 31.3 H (14-18) Glucose 120 H (83-115) mg/dL Calcium 9.2 (8.5-10.1) mg/dL Phosphorus (2.6-4.7) mg/dL Magnesium (1.8-2.4) mg/dl Total Bilirubin 0.9 (0.2-1.0) mg/dL AST 20 (15-37) U/L ALT 24 (14-59) U/L Alkaline Phosphatase 118 H (46-116) U/L Troponin I < 0.017 (0.00-0.056) ng/mL C-Reactive Protein 1.5 H* (<1.0) mg/dL NT-Pro-B Natriuret Pep 866 H (0-450) pg/mL Total Protein 6.9 (6.4-8.2) g/dl Albumin 3.5 (3.4-5.0) g/dl Globulin 3.4 gm/dL Albumin/Globulin Ratio 1.0 (1-2) Urine Color (Yellow) Urine Appearance (Clear) Urine pH (5.0-8.0) Ur Specific [place] (1.005-1.030) Urine Protein (Negative) Urine Glucose (UA) (Negative) Urine Ketones (Negative) Urine Occult Blood (Negative) Urine Nitrite (Negative) Urine Bilirubin (Negative) Urine Urobilinogen (0.2-1.0) Ur Leukocyte Esterase (Negative) Urine RBC (0-5) /hpf Urine WBC (0-5) /hpf Ur Epithelial Cells (0-5) /hpf Urine Bacteria (FEW) /hpf Urine Mucus (FEW) /hpf 08/08/18 08/08/18 08/09/18 Range/Units 08:35 18:35 05:48 WBC (3.98-10.04) K/mm3 RBC (3.98-5.22) M/mm3 Hgb (11.2-15.7) gm/L Hct (34.1-44.9) % MCV (79.4-94.8) fl MCH (25.6-32.2) pg MCHC (32.2-35.5) g/dl RDW Std Deviation (36.4-46.3) fL Plt Count (182-369) K/mm3 MPV (9.4-12.3) fl Neut % (Auto) (34.0-71.1) % Lymph % (Auto) (19.3-51.7) % [place] % (Auto) (4.7-12.5) % Eos % (Auto) (0.7-5.8) Baso % (Auto) (0.1-1.2) % Neut # (Auto) (1.56-6.13) K/mm3 Lymph # (Auto) (1.18-3.74) K/mm3 [place] # (Auto) (0.24-0.36) K/mm3 Eos # (Auto) (0.04-0.36) K/mm3 Baso # (Auto) (0.01-0.08) K/mm3 Manual Slide Review PT 31.2 H (9.5-12.1) SECONDS INR 2.92 APTT (24-31) SECONDS Puncture Site Rt radial ABG pH 7.42 (7.35-7.45) ABG pCO2 48.2 H (35.0-45.0) mmHg ABG pO2 50.0 L (80.0-100.0) mmHg ABG HCO3 30.3 H (22.0-26.0) meq/L ABG O2 Saturation 84.6 L (96.0-97.0) % ABG Base Excess 5.6 H (-2-2.0) Thierno Test Positive A-a Gradient 24 mmHg Sodium (136-145) mEq/L Potassium (3.5-5.1) mEq/L Chloride (98-107) mEq/L Carbon Dioxide (21-32) mEq/L Anion Gap (5-15) BUN (7-18) mg/dL Creatinine (0.55-1.02) mg/dL Est Cr Clr Drug Dosing mL/min Estimated GFR (MDRD) (>60) mL/min BUN/Creatinine Ratio (14-18) Glucose (83-115) mg/dL Calcium (8.5-10.1) mg/dL Phosphorus (2.6-4.7) mg/dL Magnesium (1.8-2.4) mg/dl Total Bilirubin (0.2-1.0) mg/dL AST (15-37) U/L ALT (14-59) U/L Alkaline Phosphatase (46-116) U/L Troponin I (0.00-0.056) ng/mL C-Reactive Protein (<1.0) mg/dL NT-Pro-B Natriuret Pep (0-450) pg/mL Total Protein (6.4-8.2) g/dl Albumin (3.4-5.0) g/dl Globulin gm/dL Albumin/Globulin Ratio (1-2) Urine Color Yellow (Yellow) Urine Appearance Clear (Clear) Urine pH 6.0 (5.0-8.0) Ur Specific [place] 1.010 (1.005-1.030) Urine Protein Negative (Negative) Urine Glucose (UA) Negative (Negative) Urine Ketones Negative (Negative) Urine Occult Blood Negative (Negative) Urine Nitrite Negative (Negative) Urine Bilirubin Negative (Negative) Urine Urobilinogen 0.2 (0.2-1.0) Ur Leukocyte Esterase 1+ H (Negative) Urine RBC Not seen (0-5) /hpf Urine WBC 5-10 H (0-5) /hpf Ur Epithelial Cells 0-5 (0-5) /hpf Urine Bacteria Rare (FEW) /hpf Urine Mucus Not seen (FEW) /hpf 08/09/18 08/09/18 08/09/18 Range/Units 06:05 06:05 06:05 WBC 6.63 (3.98-10.04) K/mm3 RBC 3.50 L (3.98-5.22) M/mm3 Hgb 8.6 L (11.2-15.7) gm/L Hct 28.0 L (34.1-44.9) % MCV 80.0 (79.4-94.8) fl MCH 24.6 L (25.6-32.2) pg MCHC 30.7 L (32.2-35.5) g/dl RDW Std Deviation 49.6 H (36.4-46.3) fL Plt Count 132 L (182-369) K/mm3 MPV 11.3 (9.4-12.3) fl Neut % (Auto) 75.4 H (34.0-71.1) % Lymph % (Auto) 8.9 L (19.3-51.7) % [place] % (Auto) 11.0 (4.7-12.5) % Eos % (Auto) 3.9 (0.7-5.8) Baso % (Auto) 0.5 (0.1-1.2) % Neut # (Auto) 5.00 (1.56-6.13) K/mm3 Lymph # (Auto) 0.59 L (1.18-3.74) K/mm3 [place] # (Auto) 0.73 H (0.24-0.36) K/mm3 Eos # (Auto) 0.26 (0.04-0.36) K/mm3 Baso # (Auto) 0.03 (0.01-0.08) K/mm3 Manual Slide Review Abnormal smear PT 37.2 H (9.5-12.1) SECONDS INR 3.50 APTT 49 H (24-31) SECONDS Puncture Site ABG pH (7.35-7.45) ABG pCO2 (35.0-45.0) mmHg ABG pO2 (80.0-100.0) mmHg ABG HCO3 (22.0-26.0) meq/L ABG O2 Saturation (96.0-97.0) % ABG Base Excess (-2-2.0) Thierno Test A-a Gradient mmHg Sodium (136-145) mEq/L Potassium (3.5-5.1) mEq/L Chloride (98-107) mEq/L Carbon Dioxide (21-32) mEq/L Anion Gap (5-15) BUN (7-18) mg/dL Creatinine (0.55-1.02) mg/dL Est Cr Clr Drug Dosing mL/min Estimated GFR (MDRD) (>60) mL/min BUN/Creatinine Ratio (14-18) Glucose (83-115) mg/dL Calcium (8.5-10.1) mg/dL Phosphorus (2.6-4.7) mg/dL Magnesium (1.8-2.4) mg/dl Total Bilirubin (0.2-1.0) mg/dL AST (15-37) U/L ALT (14-59) U/L Alkaline Phosphatase (46-116) U/L Troponin I (0.00-0.056) ng/mL C-Reactive Protein (<1.0) mg/dL NT-Pro-B Natriuret Pep 1080 H (0-450) pg/mL Total Protein (6.4-8.2) g/dl Albumin (3.4-5.0) g/dl Globulin gm/dL Albumin/Globulin Ratio (1-2) Urine Color (Yellow) Urine Appearance (Clear) Urine pH (5.0-8.0) Ur Specific [place] (1.005-1.030) Urine Protein (Negative) Urine Glucose (UA) (Negative) Urine Ketones (Negative) Urine Occult Blood (Negative) Urine Nitrite (Negative) Urine Bilirubin (Negative) Urine Urobilinogen (0.2-1.0) Ur Leukocyte Esterase (Negative) Urine RBC (0-5) /hpf Urine WBC (0-5) /hpf Ur Epithelial Cells (0-5) /hpf Urine Bacteria (FEW) /hpf Urine Mucus (FEW) /hpf 08/09/18 Range/Units 06:05 WBC (3.98-10.04) K/mm3 RBC (3.98-5.22) M/mm3 Hgb (11.2-15.7) gm/L Hct (34.1-44.9) % MCV (79.4-94.8) fl MCH (25.6-32.2) pg MCHC (32.2-35.5) g/dl RDW Std Deviation (36.4-46.3) fL Plt Count (182-369) K/mm3 MPV (9.4-12.3) fl Neut % (Auto) (34.0-71.1) % Lymph % (Auto) (19.3-51.7) % [place] % (Auto) (4.7-12.5) % Eos % (Auto) (0.7-5.8) Baso % (Auto) (0.1-1.2) % Neut # (Auto) (1.56-6.13) K/mm3 Lymph # (Auto) (1.18-3.74) K/mm3 [place] # (Auto) (0.24-0.36) K/mm3 Eos # (Auto) (0.04-0.36) K/mm3 Baso # (Auto) (0.01-0.08) K/mm3 Manual Slide Review PT (9.5-12.1) SECONDS INR APTT (24-31) SECONDS Puncture Site ABG pH (7.35-7.45) ABG pCO2 (35.0-45.0) mmHg ABG pO2 (80.0-100.0) mmHg ABG HCO3 (22.0-26.0) meq/L ABG O2 Saturation (96.0-97.0) % ABG Base Excess (-2-2.0) Thierno Test A-a Gradient mmHg Sodium 140 (136-145) mEq/L Potassium 3.3 L (3.5-5.1) mEq/L Chloride 102 (98-107) mEq/L Carbon Dioxide 32 (21-32) mEq/L Anion Gap 9.3 (5-15) BUN 49 H (7-18) mg/dL Creatinine 1.7 H (0.55-1.02) mg/dL Est Cr Clr Drug Dosing 21.77 mL/min Estimated GFR (MDRD) 29 (>60) mL/min BUN/Creatinine Ratio 28.8 H (14-18) Glucose 119 H (83-115) mg/dL Calcium 8.3 L (8.5-10.1) mg/dL Phosphorus 2.6 (2.6-4.7) mg/dL Magnesium 1.7 L (1.8-2.4) mg/dl Total Bilirubin 1.0 (0.2-1.0) mg/dL AST 16 (15-37) U/L ALT 22 (14-59) U/L Alkaline Phosphatase 91 (46-116) U/L Troponin I 0.022 (0.00-0.056) ng/mL C-Reactive Protein (<1.0) mg/dL NT-Pro-B Natriuret Pep (0-450) pg/mL Total Protein 5.5 L (6.4-8.2) g/dl Albumin 2.7 L (3.4-5.0) g/dl Globulin 2.8 gm/dL Albumin/Globulin Ratio 1.0 (1-2) Urine Color (Yellow) Urine Appearance (Clear) Urine pH (5.0-8.0) Ur Specific [place] (1.005-1.030) Urine Protein (Negative) Urine Glucose (UA) (Negative) Urine Ketones (Negative) Urine Occult Blood (Negative) Urine Nitrite (Negative) Urine Bilirubin (Negative) Urine Urobilinogen (0.2-1.0) Ur Leukocyte Esterase (Negative) Urine RBC (0-5) /hpf Urine WBC (0-5) /hpf Ur Epithelial Cells (0-5) /hpf Urine Bacteria (FEW) /hpf Urine Mucus (FEW) /hpf Med Orders - Current: Current Medications Acetaminophen (Tylenol) 650 mg PO Q4H PRN PRN Reason: Pain (Mild 1-3)/fever Hydrocodone Bitart/Acetaminophen ([place] 325-5 Mg) 1 tab PO Q4H PRN PRN Reason: Pain Last Admin: 08/09/18 04:13 Dose: 1 tab Aspirin (Halfprin) 81 mg PO DAILY [facility] Last Admin: 08/09/18 08:14 Dose: 81 mg Diltiazem HCl (Cardizem Cd) 180 mg PO DAILY [facility] Hydralazine HCl (Apresoline) 10 mg PO Q8H [facility] Last Admin: 08/09/18 08:15 Dose: 10 mg Piperacillin Sod/Tazobactam (Sod 4.5 gm/ Sodium Chloride) 100 mls @ 25 mls/hr IV Q8H [facility] Last Admin: 08/09/18 04:03 Dose: 25 mls/hr Isosorbide Dinitrate (Isordil) 10 mg PO TID [facility] Last Admin: 08/09/18 08:16 Dose: 10 mg Losartan Potassium (Cozaar) 25 mg PO DAILY [facility] Last Admin: 08/09/18 08:16 Dose: 25 mg Metoprolol Succinate (Toprol Xl) 50 mg PO DAILY [facility] Last Admin: 08/09/18 08:15 Dose: 50 mg Ondansetron HCl (Zofran Odt) 4 mg PO Q6H PRN PRN Reason: nausea, able to take PO Simvastatin (Zocor) 10 mg PO BEDTIME [facility] Last Admin: 08/08/18 20:53 Dose: 10 mg Sodium Chloride (Saline Flush) 10 ml FLUSH ASDIRECTED PRN PRN Reason: Keep Vein Open Discontinued Medications Furosemide (Lasix) 40 mg IVPUSH NOW ONE Stop: 08/08/18 09:06 Last Admin: 08/08/18 09:09 Dose: 40 mg Furosemide (Lasix) Confirm Administered Dose 40 mg .ROUTE .STK-MED ONE Stop: 08/08/18 09:08 Last Admin: 08/08/18 09:11 Dose: Not Given Hydralazine HCl (Apresoline) 10 mg PO Q8H [facility] Last Admin: 08/08/18 15:23 Dose: 10 mg Piperacillin Sod/Tazobactam (Sod 4.5 gm/ Sodium Chloride) 100 mls @ 200 mls/hr IV ONETIME ONE Stop: 08/08/18 11:29 Last Admin: 08/08/18 11:03 Dose: 200 mls/hr Sodium Chloride (Normal Saline) Confirm Administered Dose 100 mls @ as directed .ROUTE .STK-MED ONE Stop: 08/08/18 10:57 Last Admin: 08/08/18 11:04 Dose: Not Given Piperacillin Sod/Tazobactam Sod (Piperacil-Tazobact) Confirm Administered Dose 4.5 gm .ROUTE .STK-MED ONE Stop: 08/08/18 10:54 Last Admin: 08/08/18 11:04 Dose: Not Given Sodium Chloride (Saline Flush) 10 ml FLUSH ASDIRECTED PRN PRN Reason: Keep Vein Open Last Admin: 08/08/18 09:11 Dose: 10 ml - Exam Quality Assessment: Supplemental Oxygen General: Alert, Oriented, Cooperative HEENT: Mucous Membr. Moist/[place] Neck: Supple Lungs: Normal Respiratory Effort, Wheezing (Faint wheeze on the right side.) Cardiovascular: Irregular Rhythm GI/Abdominal Exam: Normal Bowel Sounds, Soft, Non-Tender Extremities: Pedal Edema (To 3+ pitting edema bilaterally right slightly worse than left. Improved since yesterday. ), Limited Range of Motion (Of the right ankle secondary to pain.), Increased Warmth (Improved), Redness (Improved redness of the right anterior ray.) Skin: Warm, Dry, Intact Neurological: No New Focal Deficit Psy/Mental Status: Alert, Normal Affect, Normal Mood - Problem List & Annotations (1) Congestive heart failure SNOMED Code(s): 64692942 Code(s): I50.9 - HEART FAILURE, UNSPECIFIED Status: Acute Current Visit: Yes Qualifiers: Heart failure type: right-sided Heart failure chronicity: acute on chronic Qualified Code(s): I50.813 - Acute on chronic right heart failure (2) Cellulitis SNOMED Code(s): 611854947 Code(s): L03.90 - CELLULITIS, UNSPECIFIED Status: Acute Current Visit: Yes Qualifiers: Site of cellulitis: extremity Site of cellulitis of extremity: lower extremity (3) Renal insufficiency SNOMED Code(s): 061192152, 748122174 Code(s): N28.9 - DISORDER OF KIDNEY AND URETER, UNSPECIFIED Status: Acute Current Visit: Yes (4) Leg edema SNOMED Code(s): 015987127 Code(s): R60.0 - LOCALIZED EDEMA Status: Acute Current Visit: No (5) Afib, Atrial fibrillation SNOMED Code(s): 87604226 Code(s): I48.91 - UNSPECIFIED ATRIAL FIBRILLATION Status: Chronic Current Visit: No - Problem List Review Problem List Initiated/Reviewed/Updated: Yes - My Orders Last 24 Hours: My Active Orders 08/08/18 11:20 Height and Weight [RC] 04 Up to Chair [RC] BID PT Evaluation and Treatment [CONS] Routine Acetaminophen [Tylenol] 650 mg PO Q4H PRN Acetaminophen/HYDROcodone [[place] 325-5 MG] 1 tab PO Q4H PRN Ondansetron [Zofran ODT] 4 mg PO Q6H PRN Sodium Chloride 0.9% [Saline Flush] 10 ml FLUSH ASDIRECTED PRN Saline Lock Insert [OM.PC] Routine Resuscitation Status Routine 08/08/18 11:38 Intake and Output [RC] Q2HR Oxygen Therapy [RC] PRN VTE/DVT Education [RC] 10,22 Vital Signs [RC] Q4HR 02/07/19 11:39 Notify Provider Vital Signs [RC] ASDIRECTED Pulse Oximetry [RC] PRN 08/08/18 15:00 Isosorbide Dinitrate [Isordil] 10 mg PO TID 08/08/18 15:29 Overnight Pulse Oximetry [Overnight Pulse Oximetry] [RC] Click to Edit 08/08/18 17:29 Urinary Catheter Assessment [RC] 04,10,16,22 08/08/18 17:30 Insert Urinary Catheter [OM.PC] Q24H 08/08/18 19:00 Piperacillin/Tazobactam [Piperacil-Tazobact] 4.5 gm Sodium Chloride 0.9% [ Normal Saline] 100 ml IV Q8H 08/08/18 21:00 Simvastatin [Zocor] 10 mg PO BEDTIME 08/08/18 Dinner 2 Gram Sodium Diet [DIET] 08/09/18 00:00 hydrALAZINE [Apresoline] 10 mg PO Q8H 08/09/18 05:11 Chest 2V [CR] AM 08/09/18 09:00 Aspirin [Halfprin] 81 mg PO DAILY Diltiazem HCl [Diltiazem 24Hr ER] 180 mg PO DAILY Losartan [Cozaar] 25 mg PO DAILY Metoprolol Succinate [Toprol XL] 50 mg PO DAILY 08/10/18 05:11 GLYCOSYLATED HEMOGLOBIN,HGBA1C [CHEM] AM TSH [CHEM] AM - Plan Plan:: 1. Congestive heart failure - Patient BNP is slightly increased at just over 1000. - Checks x-ray was portable did show what appears to be an enlarged cardiac silhouette with mild CHF. - Creatinine has changed from 1.5-1.7 and we will escalate afterload reduction with hydralazine and isosorbide dinitrate area. Will hold calcium channel kj, diltiazem, for now. - Continue strict I's and O's and daily weights. Follow blood pressure closely. - Patient received Lasix 40 mg IV in the emergency room. Patient has stable urinary output. We will continue to hold diuretics today and reevaluate in the morning. - Echocardiogram done yesterday, August 08, 2018, demonstrated a left ventricular ejection fraction of 60-65%, severely dilated left and right atrium , moderate mitral valve regurgitation, trace aortic valve regurgitation, moderate tricuspid valve regurgitation, and the right ventricular systolic pressure was moderate to severely elevated at 55.7 mmHg. 2. Lower extremity edema - Patient's right-sided heart failure is contributing to her lower extremity edema. Lower extremity edema has improved mildly. - Elevate legs at all times. - Increase afterload reduction with hydralazine and isosorbide dinitrate. We will evaluate need for diuretic over the next 24 hours. - Venous Doppler were negative for DVT 3. Right lower extremity cellulitis - continue on Zosyn. 4. Chronic renal insufficiency - GFR not much different today. 5. Atrial fibrillation with anticoagulation - INR increased from 2.9 to 3.5. - Continue to hold warfarin - Continue home flecainide and metoprolol for rate control. 6. Right ankle pain - xray rt ankle demonstrates osteoarthritis - PT/OT Patient will be getting physical therapy today and we will order occupational therapy. Patient will be on a cardiac 2 g sodium diet. Patient is on Flovent at home and has a slight wheeze today. I will restart her Flovent for suspected obstructive airway disease. VTE prophylaxis - patient is anticoagulated with an INR of 3.5
--- NOTE | 2018-08-09 10:10 | CR ---
Right ankle: Two views of the right ankle were obtained. Comparison: No prior ankle exam. Bony structures are osteoporotic. Ankle mortise is symmetric. Mild joint space narrowing is noted within the tibiotalar joint anteriorly. Slight spur is noted off the anterior tibia. Large spur is noted at the attachment of the Achilles tendon to the calcaneus. Plantar spur is seen. Scattered degenerative change is noted within the midfoot. No acute fracture or dislocation is seen. Vascular calcification is noted. Impression: 1. Osteoporosis and degenerative change. Calcaneal spurs and other incidental findings. 2. Nothing acute seen on two-view right ankle study. Diagnostic code #2
--- NOTE | 2018-08-09 10:10 | CR ---
Chest: Two views of the chest were obtained. Comparison: Prior chest x-ray of 08/08/18. Heart is enlarged. Pulmonary vessels are mildly increased. Slight parenchymal density is noted within the lateral left costophrenic angle most likely due to atelectasis. Pacemaker is noted. Bony structures show scattered degenerative change within the spine and osteopenia. Impression: 1. Findings suspicious for mild CHF. Other incidental findings. Diagnostic code #3
[2018-08-09] MEDS: Diltiazem 180 MG Cap.CD PO SCH ×2 (10:30→12:50)
[2018-08-09] MEDS: Potassium Chloride 20 MEQ Tab.ER PO SCH ×2 (10:30→22:34)
[2018-08-09 11:52] LABS: HEMOGLOBIN A1C 6.4 % (4.50-6.20)
[2018-08-09] MEDS: Budesonide 0.5 MG/2 ML Neb Susp NEB SCH (20:39)
[2018-08-09] MEDS: Simvastatin 10 MG Tab PO SCH (22:35)
[2018-08-10] MEDS: hydrALAZINE 10 MG Tab PO SCH ×3 (01:00→16:42)
[2018-08-10] MEDS: Piperacillin/Tazobactam 4.5 GM in Sodium Chloride 0.9% 100 ML IV SCH (03:45)
[2018-08-10] MEDS: Budesonide 0.5 MG/2 ML Neb Susp NEB SCH ×2 (06:37→20:48)
[2018-08-10 07:39] LABS: HEMOGLOBIN A1C 6.1 % (4.50-6.20)
--- NOTE | 2018-08-10 09:21 | CR ---
Chest: Portable view of the chest was obtained. Comparison: Prior chest x-ray of 08/09/18. Heart is enlarged. Pulmonary vessels are congested which appears more prominent than on previous exam. Pacemaker is noted. Slight scarring or persistent atelectasis is seen within the left base. Bony structures are grossly intact. Impression: 1. Increased pulmonary vascular congestion from prior study compatible with CHF. Diagnostic code #3
[2018-08-10] MEDS: Potassium Chloride 20 MEQ Tab.ER PO SCH ×2 (09:52→20:38)
[2018-08-10] MEDS: Losartan 25 MG Tab PO SCH (09:53)
[2018-08-10] MEDS: Isosorbide Dinitrate 10 MG Tab PO SCH ×3 (09:53→20:38)
[2018-08-10] MEDS: Diltiazem 180 MG Cap.CD PO SCH (09:53)
[2018-08-10] MEDS: Aspirin 81 MG Tab.EC PO SCH (09:53)
[2018-08-10] MEDS: Metoprolol Succinate 50 MG Tab.ER PO SCH (09:53)
[2018-08-10] MEDS: Acetaminophen/HYDROcodone 325-5 MG Tab PO PRN ×2 (09:54→14:01)
--- NOTE | 2018-08-10 10:11 | PCM.PN ---
- General Info Date of Service: 08/10/18 Admission Dx/Problem (Free Text): Admission Diagnosis/Problem Admission Diagnosis/Problem Congestive heart failure Subjective Update: Admission details: This 83-year-old female with known diastolic heart failure was brought in to the emergency room by ambulance after having worsening of lower extremity foot pain and edema. Patient states that over the last 4-8 weeks she has had a progressively worsening lower extremity edema with a 20-30 pound weight gain. Patient was seen by her primary care provider and had her Lasix increased to 80 mg from 40 mg and started on oxybutynin due to concurrent complaints of increased urination. Patient denies any shortness of breath, cough, dyspnea on exertion, chest pain orthopnea, or PND. She sleeps on one pillow on her back. She denies any history of sleep difficulties other than having to get up to urinate. Patient also states that she has increased redness and swelling in the right lower extremity worse than left. The right lower extremity is tender and red. Patient to see cardiology for atrial fibrillation and her diastolic dysfunction. She does not know when her last echocardiogram was done. Echocardiogram done on July 21, 2014 did show an ejection fraction of 50-55% with severely dilated left and right atrium. She had mild aortic valve sclerosis with moderate mitral valve regurgitation. Moderate tricuspid valve regurgitation. Right ventricular systolic pressure was moderate to severely elevated at 59.8 mmHg. In the emergency room patient was given 40 mg of Lasix IV. Her creatinine is slightly elevated over her most recent last month of 1.3 up to 1.5. August 09, 2018 Patient states that she is doing about the same as yesterday. She does state that her right ankle pain is improved but still painful. She was unable to give a numerical score. She denies any shortness of breath, fever, chills, or cough. Blood pressure was stable overnight with good diuresis. Echocardiogram done yesterday, August 08, 2018, demonstrated a left ventricular ejection fraction of 60-65%, severely dilated left and right atrium , moderate mitral valve regurgitation, trace aortic valve regurgitation, moderate tricuspid valve regurgitation, and the right ventricular systolic pressure was moderate to severely elevated at 55.7 mmHg. Lower extremity Dopplers were negative for DVT. August 10, 2018 Patient states that she is not feeling as well today. Patient was taken off of her nasal cannula O2 for trial off oxygen and her pulse oximetry dropped down to 86%. Shortly after that patient was restarted on her O2 and this is the time she was complaining about not feeling well and having a headache. Patient appears to have a decrease in her oxygenation especially at night. Patient denies any worsening shortness of breath, chest pain, cough, productive sputum, PND, or orthopnea. She continues to complain of lower extremity pain right worse than left especially in the ankle. Patient was up and out of the chair yesterday and walked to the door and back with assistance. She had 2 bowel movements over the 24 hours. Old records were received and on review of her old records patient does have history of chronic renal insufficiency. Patient's creatinine was 1.5 in May. Hemoglobin also was 11.1 at that time. Patient has known diastolic dysfunction as previously stated. Patient is being seen in conjunction with Dr. Kumar. - Review of Systems General: Reports: Fatigue. Denies: Fever HEENT: Reports: Headaches Pulmonary: Reports: No Symptoms. Denies: Shortness of Breath, Cough Cardiovascular: Denies: Chest Pain, Palpitations, Orthopnea, PND Gastrointestinal: Denies: Abdominal Pain, Constipation, Hematochezia, Melena Musculoskeletal: Reports: Joint Pain (Right ankle pain) - Patient Data Vitals - Most Recent: Last Vital Signs Temp 99.3 F 08/10/18 09:06 Pulse 96 08/10/18 09:53 Resp 32 H 08/10/18 09:06 BP 104/48 L 08/10/18 09:53 Pulse Ox 86 L 08/10/18 09:15 Weight - Most Recent: 214 lb 3.2 oz I&O - Last 24 Hours: Intake & Output 08/09/18 08/10/18 08/10/18 22:59 06:59 14:59 Intake Total 1320 900 Output Total 150 650 200 Balance 1170 250 -200 Lab Results Last 24 Hours: Laboratory Results - last 24 hr 08/09/18 08/10/18 08/10/18 Range/Units 06:05 05:55 05:55 WBC (3.98-10.04) K/mm3 RBC (3.98-5.22) M/mm3 Hgb (11.2-15.7) gm/L Hct (34.1-44.9) % MCV (79.4-94.8) fl MCH (25.6-32.2) pg MCHC (32.2-35.5) g/dl RDW Std Deviation (36.4-46.3) fL Plt Count (182-369) K/mm3 MPV (9.4-12.3) fl Neut % (Auto) (34.0-71.1) % Lymph % (Auto) (19.3-51.7) % Elbert % (Auto) (4.7-12.5) % Eos % (Auto) (0.7-5.8) Baso % (Auto) (0.1-1.2) % Neut # (Auto) (1.56-6.13) K/mm3 Lymph # (Auto) (1.18-3.74) K/mm3 Elbert # (Auto) (0.24-0.36) K/mm3 Eos # (Auto) (0.04-0.36) K/mm3 Baso # (Auto) (0.01-0.08) K/mm3 Manual Slide Review PT (9.5-12.1) SECONDS INR Sodium 139 (136-145) mEq/L Potassium 3.7 (3.5-5.1) mEq/L Chloride 101 (98-107) mEq/L Carbon Dioxide 30 (21-32) mEq/L Anion Gap 11.7 (5-15) BUN 49 H (7-18) mg/dL Creatinine 1.8 H (0.55-1.02) mg/dL Est Cr Clr Drug Dosing 20.53 mL/min Estimated GFR (MDRD) 27 (>60) mL/min BUN/Creatinine Ratio 27.2 H (14-18) Glucose 115 (83-115) mg/dL Hemoglobin A1c 6.40 H 6.10 (4.50-6.20) % Calcium 8.0 L (8.5-10.1) mg/dL Phosphorus 2.7 (2.6-4.7) mg/dL Magnesium 2.1 (1.8-2.4) mg/dl TSH 3rd Generation 1.892 (0.358-3.74) uIU/mL 08/10/18 08/10/18 Range/Units 05:55 05:55 WBC 7.44 (3.98-10.04) K/mm3 RBC 3.42 L (3.98-5.22) M/mm3 Hgb 8.4 L (11.2-15.7) gm/L Hct 27.5 L (34.1-44.9) % MCV 80.4 (79.4-94.8) fl MCH 24.6 L (25.6-32.2) pg MCHC 30.5 L (32.2-35.5) g/dl RDW Std Deviation 49.7 H (36.4-46.3) fL Plt Count 125 L (182-369) K/mm3 MPV 11.7 (9.4-12.3) fl Neut % (Auto) 75.4 H (34.0-71.1) % Lymph % (Auto) 8.2 L (19.3-51.7) % Elbert % (Auto) 12.9 H (4.7-12.5) % Eos % (Auto) 3.0 (0.7-5.8) Baso % (Auto) 0.1 (0.1-1.2) % Neut # (Auto) 5.61 (1.56-6.13) K/mm3 Lymph # (Auto) 0.61 L (1.18-3.74) K/mm3 Elbert # (Auto) 0.96 H (0.24-0.36) K/mm3 Eos # (Auto) 0.22 (0.04-0.36) K/mm3 Baso # (Auto) 0.01 (0.01-0.08) K/mm3 Manual Slide Review Abnormal smear PT 36.5 H (9.5-12.1) SECONDS INR 3.43 Sodium (136-145) mEq/L Potassium (3.5-5.1) mEq/L Chloride (98-107) mEq/L Carbon Dioxide (21-32) mEq/L Anion Gap (5-15) BUN (7-18) mg/dL Creatinine (0.55-1.02) mg/dL Est Cr Clr Drug Dosing mL/min Estimated GFR (MDRD) (>60) mL/min BUN/Creatinine Ratio (14-18) Glucose (83-115) mg/dL Hemoglobin A1c (4.50-6.20) % Calcium (8.5-10.1) mg/dL Phosphorus (2.6-4.7) mg/dL Magnesium (1.8-2.4) mg/dl TSH 3rd Generation (0.358-3.74) uIU/mL Med Orders - Current: Current Medications Acetaminophen (Tylenol) 650 mg PO Q4H PRN PRN Reason: Pain (Mild 1-3)/fever Hydrocodone Bitart/Acetaminophen ([place] 325-5 Mg) 1 tab PO Q4H PRN PRN Reason: Pain Last Admin: 08/10/18 09:54 Dose: 1 tab Amoxicillin/Clavulanate Potassium (Augmentin 500 Mg\125 Mg) 1 tab PO Q12HR [facility] Aspirin (Halfprin) 81 mg PO DAILY [facility] Last Admin: 08/10/18 09:53 Dose: 81 mg Budesonide (Pulmicort) 0.5 mg NEB BIDRT [facility] Last Admin: 08/10/18 06:37 Dose: 0.5 mg Hydralazine HCl (Apresoline) 10 mg PO Q8H [facility] Isosorbide Dinitrate (Isordil) 10 mg PO TID [facility] Losartan Potassium (Cozaar) 25 mg PO DAILY [facility] Last Admin: 08/10/18 09:53 Dose: 25 mg Metoprolol Succinate (Toprol Xl) 50 mg PO DAILY [facility] Last Admin: 08/10/18 09:53 Dose: 50 mg Ondansetron HCl (Zofran Odt) 4 mg PO Q6H PRN PRN Reason: nausea, able to take PO Potassium Chloride (Klor-Con M20) 20 meq PO BID [facility] Last Admin: 08/10/18 09:52 Dose: 20 meq Simvastatin (Zocor) 10 mg PO BEDTIME [facility] Last Admin: 08/09/18 22:35 Dose: 10 mg Sodium Chloride (Saline Flush) 10 ml FLUSH ASDIRECTED PRN PRN Reason: Keep Vein Open Discontinued Medications Diltiazem HCl (Cardizem Cd) 180 mg PO DAILY [facility] Last Admin: 08/10/18 09:53 Dose: 180 mg Furosemide (Lasix) 40 mg IVPUSH NOW ONE Stop: 08/08/18 09:06 Last Admin: 08/08/18 09:09 Dose: 40 mg Furosemide (Lasix) Confirm Administered Dose 40 mg .ROUTE .STK-MED ONE Stop: 08/08/18 09:08 Last Admin: 08/08/18 09:11 Dose: Not Given Hydralazine HCl (Apresoline) 10 mg PO Q8H [facility] Last Admin: 08/08/18 15:23 Dose: 10 mg Hydralazine HCl (Apresoline) 10 mg PO Q8H [facility] Last Admin: 08/09/18 08:15 Dose: 10 mg Hydralazine HCl (Apresoline) 20 mg PO Q8H [facility] Last Admin: 08/10/18 09:52 Dose: 20 mg Piperacillin Sod/Tazobactam (Sod 4.5 gm/ Sodium Chloride) 100 mls @ 200 mls/hr IV ONETIME ONE Stop: 08/08/18 11:29 Last Admin: 08/08/18 11:03 Dose: 200 mls/hr Sodium Chloride (Normal Saline) Confirm Administered Dose 100 mls @ as directed .ROUTE .STK-MED ONE Stop: 08/08/18 10:57 Last Admin: 08/08/18 11:04 Dose: Not Given Piperacillin Sod/Tazobactam (Sod 4.5 gm/ Sodium Chloride) 100 mls @ 25 mls/hr IV Q8H [facility] Last Admin: 08/10/18 03:45 Dose: 25 mls/hr Magnesium Sulfate/Dextrose 1 (gm/ Premix) 100 mls @ 100 mls/hr IV ONETIME ONE Stop: 08/09/18 10:30 Last Admin: 08/09/18 10:29 Dose: 100 mls/hr Isosorbide Dinitrate (Isordil) 10 mg PO TID [facility] Last Admin: 08/09/18 08:16 Dose: 10 mg Isosorbide Dinitrate (Isordil) 20 mg PO TID [facility] Last Admin: 08/10/18 09:53 Dose: 20 mg Piperacillin Sod/Tazobactam Sod (Piperacil-Tazobact) Confirm Administered Dose 4.5 gm .ROUTE .STK-MED ONE Stop: 08/08/18 10:54 Last Admin: 08/08/18 11:04 Dose: Not Given Sodium Chloride (Saline Flush) 10 ml FLUSH ASDIRECTED PRN PRN Reason: Keep Vein Open Last Admin: 08/08/18 09:11 Dose: 10 ml - Exam Quality Assessment: Supplemental Oxygen (1 L nasal cannula) General: Alert, Oriented, Cooperative HEENT: Mucous Membr. Moist/Sandy Neck: Supple Lungs: Normal Respiratory Effort, Rales (Scattered without wheezing.) Cardiovascular: Irregular Rhythm, Murmurs (2/6 systolic ejection murmur) GI/Abdominal Exam: Normal Bowel Sounds, Soft, Non-Tender, No Distention Extremities: Normal Capillary Refill, Pedal Edema (Edema up to mid thigh. Pretibial edema is 2-3+. She was wearing Davis wraps making significant improvement from yesterday. Pretibial right erythema is greatly improved. Continued tenderness in the right ankle.) Skin: Warm, Dry, Intact - Problem List & Annotations (1) Congestive heart failure SNOMED Code(s): 49108207 Code(s): I50.9 - HEART FAILURE, UNSPECIFIED Status: Acute Priority: High Current Visit: Yes Qualifiers: Heart failure type: right-sided Heart failure chronicity: acute on chronic Qualified Code(s): I50.813 - Acute on chronic right heart failure (2) Cellulitis SNOMED Code(s): 385865288 Code(s): L03.90 - CELLULITIS, UNSPECIFIED Status: Acute Current Visit: Yes Qualifiers: Site of cellulitis: extremity Site of cellulitis of extremity: lower extremity (3) Renal insufficiency SNOMED Code(s): 459315361, 670873618 Code(s): N28.9 - DISORDER OF KIDNEY AND URETER, UNSPECIFIED Status: Acute Priority: High Current Visit: Yes (4) Leg edema SNOMED Code(s): 212656667 Code(s): R60.0 - LOCALIZED EDEMA Status: Acute Current Visit: No (5) Afib, Atrial fibrillation SNOMED Code(s): 57742838 Code(s): I48.91 - UNSPECIFIED ATRIAL FIBRILLATION Status: Chronic Current Visit: No (6) Hypochromic microcytic anemia SNOMED Code(s): 99113450 Code(s): D50.9 - IRON DEFICIENCY ANEMIA, UNSPECIFIED Status: Acute Current Visit: Yes - Problem List Review Problem List Initiated/Reviewed/Updated: Yes - My Orders Last 24 Hours: My Active Orders 08/09/18 09:45 Potassium Chloride [Klor-Con M20] 20 meq PO BID 08/09/18 21:00 Budesonide [Pulmicort] 0.5 mg NEB BIDRT 08/10/18 15:00 Isosorbide Dinitrate [Isordil] 10 mg PO TID 08/10/18 16:00 hydrALAZINE [Apresoline] 10 mg PO Q8H 08/10/18 21:00 Amoxicillin/Clavulanate K [Augmentin 500 MG\125 MG] 1 tab PO Q12HR 08/11/18 05:11 CBC WITH AUTO DIFF [HEME] AM CMP [COMPREHENSIVE METABOLIC PN,CMP] [CHEM] AM INR,PT,PROTHROMBIN TIME [COAG] AM MAGNESIUM [CHEM] AM PHOSPHORUS [CHEM] AM PRO B-TYPE NATRIUR PEPT,BNPPRO [CHEM] Routine 08/11/18 06:00 CXR [Chest 1V Frontal] [CR] Routine ABG [BLOOD GAS ARTERIAL] [BG] Timed - Plan Plan:: 1. Congestive heart failure - Checks x-ray showed increased vascular congestion. - I's and O's showed positive fluid balance, but weight is down 3 pounds from hospitalization and 1 pound overnight. - Creatinine has changed from 1.7-1.8 from yesterday. Discontinue calcium channel kj and de-escalate hydralazine and isosorbide dinitrate. - Continue strict I's and O's and daily weights. Follow blood pressure closely. - Echocardiogram done August 08, 2018, demonstrated a left ventricular ejection fraction of 60-65%, severely dilated left and right atrium, moderate mitral valve regurgitation, trace aortic valve regurgitation, moderate tricuspid valve regurgitation, and the right ventricular systolic pressure was moderate to severely elevated at 55.7 mmHg. 2. Lower extremity edema - Lower extremity edema somewhat improved with elevation and leg wraps. - Patient's right-sided heart failure is contributing to her lower extremity edema. - Elevate legs at all times. - Increase afterload reduction with hydralazine and isosorbide dinitrate. We will evaluate need for diuretic over the next 24 hours. - Venous Doppler were negative for DVT 3. Right lower extremity cellulitis - Skin erythema resolved. - Switch to by mouth agent and adjusted for renal function - Augmentin 500 mg /125 mg every 12 hours. 4. Acute on chronic renal insufficiency - Creatinine continues to rise to 1.8 from 1.7 yesterday. Baseline creatinine is between 1.4 and 1.5 from old records. - We will decrease her offloading medications, hydralazine and isosorbide dinitrate, and hold calcium channel kj. - Consider noninvasive ventilatory support. Patient is having desaturations at night which is likely worsening both her right-sided heart failure and renal status. - Prognosis is guarded and we will discuss this with her daughter. 5. Atrial fibrillation with anticoagulation - INR is stable. - Continue to hold warfarin - Continue home metoprolol for rate control. 6. Right ankle pain - xray rt ankle demonstrates osteoarthritis - PT/OT 7. Anemia, microcytic - Hemoglobin has dropped from 11.1 in May now to 8.4. This is likely multifactorial to include both increase a slow possible blood loss and anemia of chronic disease. This will likely need to be reevaluated as an outpatient. - CBC will be monitored daily. Patient encouraged to get out of bed and into chair. Walk as much as possible. Patient will be on a cardiac 2 g sodium diet. Patient is on Flovent at home and has a slight wheeze today. I will restart her Flovent for suspected obstructive airway disease. VTE prophylaxis - patient is anticoagulated warfarin.
[2018-08-10] MEDS ORDERED: LORazepam 2 MG/ML SDV IVPUSH PRN (15:09)
[2018-08-10] MEDS: Amoxicillin/Clavulanate K 500-125 MG Tab PO SCH (20:37)
[2018-08-10] MEDS: Simvastatin 10 MG Tab PO SCH (20:38)
[2018-08-11] MEDS: hydrALAZINE 10 MG Tab PO SCH ×2 (01:19→12:38)
[2018-08-11] MEDS: Budesonide 0.5 MG/2 ML Neb Susp NEB SCH ×2 (06:06→20:33)
--- NOTE | 2018-08-11 08:47 | CR ---
Chest: Portable view of the chest was obtained. Comparison: Prior chest x-ray of 08/10/18. Heart is enlarged. Pulmonary vessels are congested. Stable parenchymal density noted within the left lateral costophrenic angle most likely due to scarring. Pacemaker is seen. Impression: 1. Cardiomegaly and stable pulmonary vascular congestion. Presumed scarring within the left base is also stable. Diagnostic code #3
[2018-08-11] MEDS: Metoprolol Succinate 50 MG Tab.ER PO SCH (09:21)
[2018-08-11] MEDS: Acetaminophen 325 MG Tab PO PRN (09:22)
[2018-08-11] MEDS ORDERED: Furosemide 40 MG/4 ML VIAL IVPUSH ONE (11:25)
[2018-08-11] MEDS: Potassium Chloride 20 MEQ Tab.ER PO SCH ×2 (12:25→20:29)
[2018-08-11] MEDS: Amoxicillin/Clavulanate K 500-125 MG Tab PO SCH ×2 (12:27→20:28)
[2018-08-11] MEDS: Aspirin 81 MG Tab.EC PO SCH (12:27)
[2018-08-11] MEDS: Losartan 25 MG Tab PO SCH (12:38)
[2018-08-11] MEDS: Isosorbide Dinitrate 10 MG Tab PO SCH (12:39)
--- NOTE | 2018-08-11 13:45 | PCM.PN ---
- General Info Date of Service: 08/11/18 Admission Dx/Problem (Free Text): Admission Diagnosis/Problem Admission Diagnosis/Problem Congestive heart failure Subjective Update: Admission details: This 83-year-old female with known diastolic heart failure was brought in to the emergency room by ambulance after having worsening of lower extremity foot pain and edema. Patient states that over the last 4-8 weeks she has had a progressively worsening lower extremity edema with a 20-30 pound weight gain. Patient was seen by her primary care provider and had her Lasix increased to 80 mg from 40 mg and started on oxybutynin due to concurrent complaints of increased urination. Patient denies any shortness of breath, cough, dyspnea on exertion, chest pain orthopnea, or PND. She sleeps on one pillow on her back. She denies any history of sleep difficulties other than having to get up to urinate. Patient also states that she has increased redness and swelling in the right lower extremity worse than left. The right lower extremity is tender and red. Patient to see cardiology for atrial fibrillation and her diastolic dysfunction. She does not know when her last echocardiogram was done. Echocardiogram done on July 21, 2014 did show an ejection fraction of 50-55% with severely dilated left and right atrium. She had mild aortic valve sclerosis with moderate mitral valve regurgitation. Moderate tricuspid valve regurgitation. Right ventricular systolic pressure was moderate to severely elevated at 59.8 mmHg. In the emergency room patient was given 40 mg of Lasix IV. Her creatinine is slightly elevated over her most recent last month of 1.3 up to 1.5. August 09, 2018 Patient states that she is doing about the same as yesterday. She does state that her right ankle pain is improved but still painful. She was unable to give a numerical score. She denies any shortness of breath, fever, chills, or cough. Blood pressure was stable overnight with good diuresis. Echocardiogram done yesterday, August 08, 2018, demonstrated a left ventricular ejection fraction of 60-65%, severely dilated left and right atrium , moderate mitral valve regurgitation, trace aortic valve regurgitation, moderate tricuspid valve regurgitation, and the right ventricular systolic pressure was moderate to severely elevated at 55.7 mmHg. Lower extremity Dopplers were negative for DVT. August 10, 2018 Patient states that she is not feeling as well today. Patient was taken off of her nasal cannula O2 for trial off oxygen and her pulse oximetry dropped down to 86%. Shortly after that patient was restarted on her O2 and this is the time she was complaining about not feeling well and having a headache. Patient appears to have a decrease in her oxygenation especially at night. Patient denies any worsening shortness of breath, chest pain, cough, productive sputum, PND, or orthopnea. She continues to complain of lower extremity pain right worse than left especially in the ankle. Patient was up and out of the chair yesterday and walked to the door and back with assistance. She had 2 bowel movements over the 24 hours. Old records were received and on review of her old records patient does have history of chronic renal insufficiency. Patient's creatinine was 1.5 in May. Hemoglobin also was 11.1 at that time. Patient has known diastolic dysfunction as previously stated. August 11, 2018 Patient today complains of difficulty sleeping secondary to her left knee pain, which is new, but she tolerated the BiPAP well. She does not complain of knee pain at this time. Nurse reports the patient slept most of the night and use the BiPAP and the entire night. Patient denies any shortness of breath, cough, fever, or chills. 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 Patient's INR is still above 3 but coming down. Her creatinine did creep up to 1.9 and her BNP is 1100. Patient did have 3 bowel movements of loose stools yesterday, this is normal. Patient is being seen in conjunction with Dr. Kumar. - Review of Systems General: Reports: No Symptoms HEENT: Reports: No Symptoms Pulmonary: Denies: Shortness of Breath, Cough Cardiovascular: Denies: Chest Pain, Palpitations Gastrointestinal: Reports: No Symptoms Neurological: Reports: No Symptoms Psychiatric: Reports: No Symptoms - Patient Data Vitals - Most Recent: Last Vital Signs Temp 98.8 F 08/11/18 12:46 Pulse 91 08/11/18 12:46 Resp 30 H 08/11/18 12:46 BP 99/56 L 08/11/18 12:46 Pulse Ox 96 08/11/18 12:46 Weight - Most Recent: 215 lb 4.8 oz I&O - Last 24 Hours: Intake & Output 08/10/18 08/11/18 08/11/18 22:59 06:59 14:59 Intake Total 480 630 Output Total 375 Balance 480 610 Lab Results Last 24 Hours: Laboratory Results - last 24 hr 08/11/18 08/11/18 08/11/18 Range/Units 05:19 05:19 05:19 WBC 8.77 (3.98-10.04) K/mm3 RBC 3.45 L (3.98-5.22) M/mm3 Hgb 8.6 L (11.2-15.7) gm/L Hct 27.8 L (34.1-44.9) % MCV 80.6 (79.4-94.8) fl MCH 24.9 L (25.6-32.2) pg MCHC 30.9 L (32.2-35.5) g/dl RDW Std Deviation 50.0 H (36.4-46.3) fL Plt Count 156 L (182-369) K/mm3 MPV 11.7 (9.4-12.3) fl Neut % (Auto) 76.9 H (34.0-71.1) % Lymph % (Auto) 6.4 L (19.3-51.7) % Harding % (Auto) 12.7 H (4.7-12.5) % Eos % (Auto) 3.5 (0.7-5.8) Baso % (Auto) 0.3 (0.1-1.2) % Neut # (Auto) 6.74 H (1.56-6.13) K/mm3 Lymph # (Auto) 0.56 L (1.18-3.74) K/mm3 [place] # (Auto) 1.11 H (0.24-0.36) K/mm3 Eos # (Auto) 0.31 (0.04-0.36) K/mm3 Baso # (Auto) 0.03 (0.01-0.08) K/mm3 Manual Slide Review Abnormal smear PT 34.7 H (9.5-12.1) SECONDS INR 3.26 Puncture Site ABG pH (7.35-7.45) ABG pCO2 (35.0-45.0) mmHg ABG pO2 (80.0-100.0) mmHg ABG HCO3 (22.0-26.0) meq/L ABG O2 Saturation (96.0-97.0) % ABG Base Excess (-2-2.0) Thierno Test A-a Gradient mmHg O2 Delivery Device Oxygen Flow Rate FiO2 (21.00-100.00) % Sodium 138 (136-145) mEq/L Potassium 4.2 (3.5-5.1) mEq/L Chloride 100 (98-107) mEq/L Carbon Dioxide 30 (21-32) mEq/L Anion Gap 12.2 (5-15) BUN 58 H (7-18) mg/dL Creatinine 1.9 H (0.55-1.02) mg/dL Est Cr Clr Drug Dosing 19.45 mL/min Estimated GFR (MDRD) 25 (>60) mL/min BUN/Creatinine Ratio 30.5 H (14-18) Glucose 109 (83-115) mg/dL Calcium 8.1 L (8.5-10.1) mg/dL Phosphorus 3.1 (2.6-4.7) mg/dL Magnesium 2.1 (1.8-2.4) mg/dl Total Bilirubin 0.9 (0.2-1.0) mg/dL AST 19 (15-37) U/L ALT 24 (14-59) U/L Alkaline Phosphatase 101 (46-116) U/L Troponin I (0.00-0.056) ng/mL NT-Pro-B Natriuret Pep (0-450) pg/mL Total Protein 5.7 L (6.4-8.2) g/dl Albumin 2.6 L (3.4-5.0) g/dl Globulin 3.1 gm/dL Albumin/Globulin Ratio 0.8 L (1-2) 08/11/18 08/11/18 08/11/18 Range/Units 05:19 05:19 06:36 WBC (3.98-10.04) K/mm3 RBC (3.98-5.22) M/mm3 Hgb (11.2-15.7) gm/L Hct (34.1-44.9) % MCV (79.4-94.8) fl MCH (25.6-32.2) pg MCHC (32.2-35.5) g/dl RDW Std Deviation (36.4-46.3) fL Plt Count (182-369) K/mm3 MPV (9.4-12.3) fl Neut % (Auto) (34.0-71.1) % Lymph % (Auto) (19.3-51.7) % [place] % (Auto) (4.7-12.5) % Eos % (Auto) (0.7-5.8) Baso % (Auto) (0.1-1.2) % Neut # (Auto) (1.56-6.13) K/mm3 Lymph # (Auto) (1.18-3.74) K/mm3 [place] # (Auto) (0.24-0.36) K/mm3 Eos # (Auto) (0.04-0.36) K/mm3 Baso # (Auto) (0.01-0.08) K/mm3 Manual Slide Review PT (9.5-12.1) SECONDS INR Puncture Site Lt radial ABG pH 7.39 (7.35-7.45) ABG pCO2 46.1 H (35.0-45.0) mmHg ABG pO2 79.0 L (80.0-100.0) mmHg ABG HCO3 27.6 H (22.0-26.0) meq/L ABG O2 Saturation 96.2 (96.0-97.0) % ABG Base Excess 2.8 H (-2-2.0) Thierno Test Positive A-a Gradient 17 mmHg O2 Delivery Device Cannula Oxygen Flow Rate 1.0 FiO2 24.00 (21.00-100.00) % Sodium (136-145) mEq/L Potassium (3.5-5.1) mEq/L Chloride (98-107) mEq/L Carbon Dioxide (21-32) mEq/L Anion Gap (5-15) BUN (7-18) mg/dL Creatinine (0.55-1.02) mg/dL Est Cr Clr Drug Dosing mL/min Estimated GFR (MDRD) (>60) mL/min BUN/Creatinine Ratio (14-18) Glucose (83-115) mg/dL Calcium (8.5-10.1) mg/dL Phosphorus (2.6-4.7) mg/dL Magnesium (1.8-2.4) mg/dl Total Bilirubin (0.2-1.0) mg/dL AST (15-37) U/L ALT (14-59) U/L Alkaline Phosphatase (46-116) U/L Troponin I < 0.017 (0.00-0.056) ng/mL NT-Pro-B Natriuret Pep 1194 H (0-450) pg/mL Total Protein (6.4-8.2) g/dl Albumin (3.4-5.0) g/dl Globulin gm/dL Albumin/Globulin Ratio (1-2) Med Orders - Current: Current Medications Acetaminophen (Tylenol) 650 mg PO Q4H PRN PRN Reason: Pain (Mild 1-3)/fever Last Admin: 08/11/18 09:22 Dose: 650 mg Amoxicillin/Clavulanate Potassium (Augmentin 500 Mg\125 Mg) 1 tab PO Q12HR [facility] Last Admin: 08/11/18 12:27 Dose: 1 tab Aspirin (Halfprin) 81 mg PO DAILY [facility] Last Admin: 08/11/18 12:27 Dose: 81 mg Budesonide (Pulmicort) 0.5 mg NEB BIDRT [facility] Last Admin: 08/11/18 06:06 Dose: 0.5 mg Lorazepam (Ativan) 0.5 mg IVPUSH Q2H PRN PRN Reason: Anxiety Metoprolol Succinate (Toprol Xl) 50 mg PO DAILY [facility] Last Admin: 08/11/18 09:21 Dose: 50 mg Ondansetron HCl (Zofran Odt) 4 mg PO Q6H PRN PRN Reason: nausea, able to take PO Potassium Chloride (Klor-Con M20) 20 meq PO BID [facility] Last Admin: 08/11/18 12:25 Dose: 20 meq Simvastatin (Zocor) 10 mg PO BEDTIME [facility] Last Admin: 08/10/18 20:38 Dose: 10 mg Sodium Chloride (Saline Flush) 10 ml FLUSH ASDIRECTED PRN PRN Reason: Keep Vein Open Discontinued Medications Hydrocodone Bitart/Acetaminophen (Hospers 325-5 Mg) 1 tab PO Q4H PRN PRN Reason: Pain Last Admin: 08/10/18 14:01 Dose: 1 tab Diltiazem HCl (Cardizem Cd) 180 mg PO DAILY [facility] Last Admin: 08/10/18 09:53 Dose: 180 mg Furosemide (Lasix) 40 mg IVPUSH NOW ONE Stop: 08/08/18 09:06 Last Admin: 08/08/18 09:09 Dose: 40 mg Furosemide (Lasix) Confirm Administered Dose 40 mg .ROUTE .STK-MED ONE Stop: 08/08/18 09:08 Last Admin: 08/08/18 09:11 Dose: Not Given Furosemide (Lasix) 80 mg IVPUSH NOW ONE Stop: 08/11/18 11:26 Last Admin: 08/11/18 12:27 Dose: 80 mg Hydralazine HCl (Apresoline) 10 mg PO Q8H [facility] Last Admin: 08/08/18 15:23 Dose: 10 mg Hydralazine HCl (Apresoline) 10 mg PO Q8H [facility] Last Admin: 08/09/18 08:15 Dose: 10 mg Hydralazine HCl (Apresoline) 20 mg PO Q8H [facility] Last Admin: 08/10/18 09:52 Dose: 20 mg Hydralazine HCl (Apresoline) 10 mg PO Q8H [facility] Last Admin: 08/11/18 12:38 Dose: Not Given Piperacillin Sod/Tazobactam (Sod 4.5 gm/ Sodium Chloride) 100 mls @ 200 mls/hr IV ONETIME ONE Stop: 08/08/18 11:29 Last Admin: 08/08/18 11:03 Dose: 200 mls/hr Sodium Chloride (Normal Saline) Confirm Administered Dose 100 mls @ as directed .ROUTE .STK-MED ONE Stop: 08/08/18 10:57 Last Admin: 08/08/18 11:04 Dose: Not Given Piperacillin Sod/Tazobactam (Sod 4.5 gm/ Sodium Chloride) 100 mls @ 25 mls/hr IV Q8H [facility] Last Admin: 08/10/18 03:45 Dose: 25 mls/hr Magnesium Sulfate/Dextrose 1 (gm/ Premix) 100 mls @ 100 mls/hr IV ONETIME ONE Stop: 08/09/18 10:30 Last Admin: 08/09/18 10:29 Dose: 100 mls/hr Isosorbide Dinitrate (Isordil) 10 mg PO TID [facility] Last Admin: 08/09/18 08:16 Dose: 10 mg Isosorbide Dinitrate (Isordil) 20 mg PO TID [facility] Last Admin: 08/10/18 09:53 Dose: 20 mg Isosorbide Dinitrate (Isordil) 10 mg PO TID [facility] Last Admin: 08/11/18 12:39 Dose: Not Given Losartan Potassium (Cozaar) 25 mg PO DAILY [facility] Last Admin: 08/11/18 12:38 Dose: Not Given Piperacillin Sod/Tazobactam Sod (Piperacil-Tazobact) Confirm Administered Dose 4.5 gm .ROUTE .STK-MED ONE Stop: 08/08/18 10:54 Last Admin: 08/08/18 11:04 Dose: Not Given Sodium Chloride (Saline Flush) 10 ml FLUSH ASDIRECTED PRN PRN Reason: Keep Vein Open Last Admin: 08/08/18 09:11 Dose: 10 ml - Exam Quality Assessment: Supplemental Oxygen General: Alert, Oriented HEENT: Mucous Membr. Moist/[place] Lungs: Normal Respiratory Effort, Rales (Bibasilar). No: Wheezing Cardiovascular: Irregular Rhythm GI/Abdominal Exam: Normal Bowel Sounds, Soft, Non-Tender Extremities: Pedal Edema (Patient has improving lower extremity edema. Leg wraps were placed overnight and after removal showed indentations, but no skin breakdown.). No: Redness - Problem List & Annotations (1) Congestive heart failure SNOMED Code(s): 83605983 Code(s): I50.9 - HEART FAILURE, UNSPECIFIED Status: Acute Priority: High Current Visit: Yes Qualifiers: Heart failure type: right-sided Heart failure chronicity: acute on chronic Qualified Code(s): I50.813 - Acute on chronic right heart failure (2) Cellulitis SNOMED Code(s): 683542850 Code(s): L03.90 - CELLULITIS, UNSPECIFIED Status: Acute Current Visit: Yes Qualifiers: Site of cellulitis: extremity Site of cellulitis of extremity: lower extremity (3) Renal insufficiency SNOMED Code(s): 867051029, 527312735 Code(s): N28.9 - DISORDER OF KIDNEY AND URETER, UNSPECIFIED Status: Acute Priority: High Current Visit: Yes (4) Leg edema SNOMED Code(s): 667140605 Code(s): R60.0 - LOCALIZED EDEMA Status: Acute Current Visit: No (5) Afib, Atrial fibrillation SNOMED Code(s): 61531274 Code(s): I48.91 - UNSPECIFIED ATRIAL FIBRILLATION Status: Chronic Current Visit: No (6) Hypochromic microcytic anemia SNOMED Code(s): 92959284 Code(s): D50.9 - IRON DEFICIENCY ANEMIA, UNSPECIFIED Status: Acute Current Visit: Yes - Problem List Review Problem List Initiated/Reviewed/Updated: Yes - My Orders Last 24 Hours: My Active Orders 08/10/18 15:08 BIPAP Adult [RT BiPAP/CPAP] [RC] 2100 08/10/18 15:09 LORazepam [Ativan] 0.5 mg IVPUSH Q2H PRN 08/10/18 16:50 Bladder Scan [RC] ASDIRECTED 08/10/18 21:00 Amoxicillin/Clavulanate K [Augmentin 500 MG\125 MG] 1 tab PO Q12HR 08/11/18 11:26 Urinary Catheter Assessment [RC] 04,10,16,22 08/11/18 11:30 Styles Catheter Insertion [Insert Urinary Catheter] [OM.PC] Q24H 08/11/18 16:30 BASIC METABOLIC PANEL,BMP [CHEM] Timed MAGNESIUM [CHEM] Timed PHOSPHORUS [CHEM] Timed - Plan Plan:: 1. Congestive heart failure - Chest x-ray demonstrated stable vascular congestion. - I's and O's showed positive fluid balance with 1 pound weight gain. Patient was incontinent of urine, limiting accuracy of eyes and nose. - Creatinine has changed from 1.8-1.9 from yesterday. - Discontinue hydralazine and isosorbide dinitrate. - Patient be given a trial of diuresis with Lasix 80 mg IV 1. We had a long discussion in regards to possibility of worsening renal function. I offered her and her daughter transfer to [place] for a higher level of care and at this time they want to try diuresis here and if renal function, or other complication , worsens consider transfer at that time. - Continue strict I's and O's and daily weights. Follow blood pressure closely. - Echocardiogram done August 08, 2018, demonstrated a left ventricular ejection fraction of 60-65%, severely dilated left and right atrium, moderate mitral valve regurgitation, trace aortic valve regurgitation, moderate tricuspid valve regurgitation, and the right ventricular systolic pressure was moderate to severely elevated at 55.7 mmHg. 2. Lower extremity edema - Lower extremity edema somewhat improved with elevation and leg wraps. - Patient's right-sided heart failure is contributing to her lower extremity edema. - Elevate legs at all times. - Lasix 80 mg IV 1 - Venous Doppler were negative for DVT 3. Right lower extremity cellulitis - Skin erythema resolved. - Continue Augmentin 500 mg/125 mg every 12 hours for total of 7 days of total antibiotic coverage. 4. Acute on chronic renal insufficiency - Creatinine continues to rise to 1.9 from 1.8 yesterday. Baseline creatinine is between 1.4 and 1.5 from old records. - Repeat BMP, mag, and phosphorus this evening. If worsening we will consider transfer to [place]. - Discuss with family possibility of Lasix worsening renal function. - Continue noninvasive ventilatory support for both her right-sided heart failure, pulmonary hypertension, and renal status. - Prognosis is guarded and was discussed with her and her daughter. 5. Atrial fibrillation with anticoagulation - INR is stable. - Continue to hold warfarin - Continue home metoprolol for rate control. 6. Right ankle pain - xray rt ankle demonstrates osteoarthritis - PT/OT 7. Anemia, microcytic - Hemoglobin stable at 8.6 - CBC will be monitored daily. Patient encouraged to get out of bed and into chair. Walk as much as possible. Patient will be on a cardiac 2 g sodium diet. Patient is on Flovent at home and has a slight wheeze today. I will restart her Flovent for suspected obstructive airway disease. VTE prophylaxis - patient is anticoagulated warfarin.
[2018-08-11] MEDS: Simvastatin 10 MG Tab PO SCH (20:29)
[2018-08-12] MEDS: Acetaminophen 325 MG Tab PO PRN ×2 (00:19→21:16)
[2018-08-12] MEDS: Budesonide 0.5 MG/2 ML Neb Susp NEB SCH ×2 (06:29→22:15)
[2018-08-12] MEDS: Potassium Chloride 20 MEQ Tab.ER PO SCH ×2 (09:06→21:16)
[2018-08-12] MEDS: Aspirin 81 MG Tab.EC PO SCH (09:06)
[2018-08-12] MEDS: Metoprolol Succinate 50 MG Tab.ER PO SCH (09:06)
[2018-08-12] MEDS: Amoxicillin/Clavulanate K 500-125 MG Tab PO SCH ×2 (09:06→21:16)
[2018-08-12] MEDS: Oxybutynin 5 MG Tab.ER PO SCH (13:34)
--- NOTE | 2018-08-12 14:17 | PCM.PN ---
- General Info Date of Service: 08/12/18 Functional Status: Reports: Pain Controlled, Tolerating Diet, Ambulating ( minimal), Urinating - Review of Systems General: Reports: No Symptoms HEENT: Reports: No Symptoms Pulmonary: Reports: No Symptoms Cardiovascular: Reports: No Symptoms Gastrointestinal: Reports: No Symptoms Genitourinary: Reports: No Symptoms Musculoskeletal: Reports: No Symptoms Skin: Reports: No Symptoms Neurological: Reports: Weakness Psychiatric: Reports: No Symptoms - Patient Data Vitals - Most Recent: Last Vital Signs Temp 36.9 C 08/12/18 08:52 Pulse 103 H 08/12/18 09:06 Resp 24 H 08/12/18 08:52 BP 108/92 H 08/12/18 09:06 Pulse Ox 93 L 08/12/18 09:20 Weight - Most Recent: 101.378 kg I&O - Last 24 Hours: Intake & Output 08/11/18 08/12/18 08/12/18 22:59 06:59 14:59 Intake Total 320 600 160 Output Total 1450 650 215 Balance -1130 -50 -55 Lab Results Last 24 Hours: Laboratory Results - last 24 hr 08/11/18 08/12/18 08/12/18 Range/Units 16:30 06:10 06:10 WBC 7.79 (3.98-10.04) K/mm3 RBC 3.79 L (3.98-5.22) M/mm3 Hgb 9.2 L (11.2-15.7) gm/L Hct 30.5 L (34.1-44.9) % MCV 80.5 (79.4-94.8) fl MCH 24.3 L (25.6-32.2) pg MCHC 30.2 L (32.2-35.5) g/dl RDW Std Deviation 50.0 H (36.4-46.3) fL Plt Count 169 L (182-369) K/mm3 MPV 11.3 (9.4-12.3) fl Neut % (Auto) 74.3 H (34.0-71.1) % Lymph % (Auto) 7.4 L (19.3-51.7) % [place] % (Auto) 15.3 H (4.7-12.5) % Eos % (Auto) 2.3 (0.7-5.8) Baso % (Auto) 0.4 (0.1-1.2) % Neut # (Auto) 5.79 (1.56-6.13) K/mm3 Lymph # (Auto) 0.58 L (1.18-3.74) K/mm3 [place] # (Auto) 1.19 H (0.24-0.36) K/mm3 Eos # (Auto) 0.18 (0.04-0.36) K/mm3 Baso # (Auto) 0.03 (0.01-0.08) K/mm3 Manual Slide Review Abnormal smear PT 25.7 H (9.5-12.1) SECONDS INR 2.40 Puncture Site ABG pH (7.35-7.45) ABG pCO2 (35.0-45.0) mmHg ABG pO2 (80.0-100.0) mmHg ABG HCO3 (22.0-26.0) meq/L ABG O2 Saturation (96.0-97.0) % ABG Base Excess (-2-2.0) A-a Gradient mmHg O2 Delivery Device Oxygen Flow Rate FiO2 (21.00-100.00) % Sodium 138 (136-145) mEq/L Potassium 4.3 (3.5-5.1) mEq/L Chloride 101 (98-107) mEq/L Carbon Dioxide 28 (21-32) mEq/L Anion Gap 13.3 (5-15) BUN 63 H (7-18) mg/dL Creatinine 1.9 H (0.55-1.02) mg/dL Est Cr Clr Drug Dosing 19.45 mL/min Estimated GFR (MDRD) 25 (>60) mL/min BUN/Creatinine Ratio 33.2 H (14-18) Glucose 189 H (83-115) mg/dL Calcium 8.4 L (8.5-10.1) mg/dL Phosphorus 3.3 (2.6-4.7) mg/dL Magnesium 2.2 (1.8-2.4) mg/dl NT-Pro-B Natriuret Pep (0-450) pg/mL 08/12/18 08/12/18 08/12/18 Range/Units 06:10 06:10 06:40 WBC (3.98-10.04) K/mm3 RBC (3.98-5.22) M/mm3 Hgb (11.2-15.7) gm/L Hct (34.1-44.9) % MCV (79.4-94.8) fl MCH (25.6-32.2) pg MCHC (32.2-35.5) g/dl RDW Std Deviation (36.4-46.3) fL Plt Count (182-369) K/mm3 MPV (9.4-12.3) fl Neut % (Auto) (34.0-71.1) % Lymph % (Auto) (19.3-51.7) % [place] % (Auto) (4.7-12.5) % Eos % (Auto) (0.7-5.8) Baso % (Auto) (0.1-1.2) % Neut # (Auto) (1.56-6.13) K/mm3 Lymph # (Auto) (1.18-3.74) K/mm3 [place] # (Auto) (0.24-0.36) K/mm3 Eos # (Auto) (0.04-0.36) K/mm3 Baso # (Auto) (0.01-0.08) K/mm3 Manual Slide Review PT (9.5-12.1) SECONDS INR Puncture Site Lt brachial ABG pH 7.39 (7.35-7.45) ABG pCO2 47.6 H (35.0-45.0) mmHg ABG pO2 77.0 L (80.0-100.0) mmHg ABG HCO3 28.4 H (22.0-26.0) meq/L ABG O2 Saturation 96.2 (96.0-97.0) % ABG Base Excess 3.5 H (-2-2.0) A-a Gradient 17 mmHg O2 Delivery Device Cannula Oxygen Flow Rate 1.0 FiO2 24.00 (21.00-100.00) % Sodium 137 (136-145) mEq/L Potassium 4.0 (3.5-5.1) mEq/L Chloride 101 (98-107) mEq/L Carbon Dioxide 29 (21-32) mEq/L Anion Gap 11.0 (5-15) BUN 66 H (7-18) mg/dL Creatinine 1.6 H (0.55-1.02) mg/dL Est Cr Clr Drug Dosing 23.09 mL/min Estimated GFR (MDRD) 31 (>60) mL/min BUN/Creatinine Ratio 41.3 H (14-18) Glucose 133 H (83-115) mg/dL Calcium 8.3 L (8.5-10.1) mg/dL Phosphorus 3.1 (2.6-4.7) mg/dL Magnesium 2.2 (1.8-2.4) mg/dl NT-Pro-B Natriuret Pep 1325 H (0-450) pg/mL Med Orders - Current: Current Medications Acetaminophen (Tylenol) 650 mg PO Q4H PRN PRN Reason: Pain (Mild 1-3)/fever Last Admin: 08/12/18 00:19 Dose: 650 mg Amoxicillin/Clavulanate Potassium (Augmentin 500 Mg\125 Mg) 1 tab PO Q12HR [facility] Last Admin: 08/12/18 09:06 Dose: 1 tab Aspirin (Halfprin) 81 mg PO DAILY [facility] Last Admin: 08/12/18 09:06 Dose: 81 mg Budesonide (Pulmicort) 0.5 mg NEB BIDRT [facility] Last Admin: 08/12/18 06:29 Dose: 0.5 mg Lorazepam (Ativan) 0.5 mg IVPUSH Q2H PRN PRN Reason: Anxiety Metoprolol Succinate (Toprol Xl) 50 mg PO DAILY [facility] Last Admin: 08/12/18 09:06 Dose: 50 mg Ondansetron HCl (Zofran Odt) 4 mg PO Q6H PRN PRN Reason: nausea, able to take PO Oxybutynin Chloride (Oxybutynin Er) 5 mg PO DAILY [facility] Last Admin: 08/12/18 13:34 Dose: 5 mg Potassium Chloride (Klor-Con M20) 20 meq PO BID [facility] Last Admin: 08/12/18 09:06 Dose: 20 meq Simvastatin (Zocor) 10 mg PO BEDTIME [facility] Last Admin: 08/11/18 20:29 Dose: 10 mg Sodium Chloride (Saline Flush) 10 ml FLUSH ASDIRECTED PRN PRN Reason: Keep Vein Open Discontinued Medications Hydrocodone Bitart/Acetaminophen ([place] 325-5 Mg) 1 tab PO Q4H PRN PRN Reason: Pain Last Admin: 08/10/18 14:01 Dose: 1 tab Diltiazem HCl (Cardizem Cd) 180 mg PO DAILY [facility] Last Admin: 08/10/18 09:53 Dose: 180 mg Furosemide (Lasix) 40 mg IVPUSH NOW ONE Stop: 08/08/18 09:06 Last Admin: 08/08/18 09:09 Dose: 40 mg Furosemide (Lasix) Confirm Administered Dose 40 mg .ROUTE .[facility] ONE Stop: 08/08/18 09:08 Last Admin: 08/08/18 09:11 Dose: Not Given Furosemide (Lasix) 80 mg IVPUSH NOW ONE Stop: 08/11/18 11:26 Last Admin: 08/11/18 12:27 Dose: 80 mg Hydralazine HCl (Apresoline) 10 mg PO Q8H [facility] Last Admin: 08/08/18 15:23 Dose: 10 mg Hydralazine HCl (Apresoline) 10 mg PO Q8H [facility] Last Admin: 08/09/18 08:15 Dose: 10 mg Hydralazine HCl (Apresoline) 20 mg PO Q8H [facility] Last Admin: 08/10/18 09:52 Dose: 20 mg Hydralazine HCl (Apresoline) 10 mg PO Q8H [facility] Last Admin: 08/11/18 12:38 Dose: Not Given Piperacillin Sod/Tazobactam (Sod 4.5 gm/ Sodium Chloride) 100 mls @ 200 mls/hr IV ONETIME ONE Stop: 08/08/18 11:29 Last Admin: 08/08/18 11:03 Dose: 200 mls/hr Sodium Chloride (Normal Saline) Confirm Administered Dose 100 mls @ as directed .ROUTE .[facility] ONE Stop: 08/08/18 10:57 Last Admin: 08/08/18 11:04 Dose: Not Given Piperacillin Sod/Tazobactam (Sod 4.5 gm/ Sodium Chloride) 100 mls @ 25 mls/hr IV Q8H [facility] Last Admin: 08/10/18 03:45 Dose: 25 mls/hr Magnesium Sulfate/Dextrose 1 (gm/ Premix) 100 mls @ 100 mls/hr IV ONETIME ONE Stop: 08/09/18 10:30 Last Admin: 08/09/18 10:29 Dose: 100 mls/hr Isosorbide Dinitrate (Isordil) 10 mg PO TID [facility] Last Admin: 08/09/18 08:16 Dose: 10 mg Isosorbide Dinitrate (Isordil) 20 mg PO TID [facility] Last Admin: 08/10/18 09:53 Dose: 20 mg Isosorbide Dinitrate (Isordil) 10 mg PO TID [facility] Last Admin: 08/11/18 12:39 Dose: Not Given Losartan Potassium (Cozaar) 25 mg PO DAILY [facility] Last Admin: 08/11/18 12:38 Dose: Not Given Piperacillin Sod/Tazobactam Sod (Piperacil-Tazobact) Confirm Administered Dose 4.5 gm .ROUTE .[facility] ONE Stop: 08/08/18 10:54 Last Admin: 08/08/18 11:04 Dose: Not Given Sodium Chloride (Saline Flush) 10 ml FLUSH ASDIRECTED PRN PRN Reason: Keep Vein Open Last Admin: 08/08/18 09:11 Dose: 10 ml - Exam Quality Assessment: DVT Prophylaxis General: Alert, Oriented, Cooperative, No Acute Distress HEENT: Pupils Equal, Pupils Reactive, EOMI Neck: Trachea Midline, No JVD Lungs: Normal Respiratory Effort Cardiovascular: Regular Rate, Irregular Rhythm GI/Abdominal Exam: Normal Bowel Sounds, Soft, Non-Tender, No Organomegaly, No Distention (Female) Exam: Deferred Back Exam: Normal Inspection Extremities: Normal Inspection, Non-Tender, Normal Capillary Refill, Pedal Edema (trace) Skin: Warm Neurological: No New Focal Deficit Psy/Mental Status: Alert, Normal Affect, Normal Mood - Problem List Review Problem List Initiated/Reviewed/Updated: Yes - My Orders Last 24 Hours: My Active Orders 08/12/18 12:00 Oxybutynin [Oxybutynin ER] 5 mg PO DAILY 08/12/18 Dinner Fluid Restriction [DIET] - Plan Plan:: 1. Congestive heart failure - Chest x-ray demonstrated stable vascular congestion. - I's and O's showed positive fluid balance with 1 pound weight gain. Patient was incontinent of urine, limiting accuracy of eyes and nose. - Creatinine has changed from 1.8-1.9--->>1.6 - Discontinue hydralazine and isosorbide dinitrate. - Patient be given a trial of diuresis with Lasix 80 mg IV 1. We had a long discussion in regards to possibility of worsening renal function. I offered her and her daughter transfer to [place] for a higher level of care and at this time they want to try diuresis here and if renal function, or other complication , worsens consider transfer at that time. - Continue strict I's and O's and daily weights. Follow blood pressure closely. - Echocardiogram done August 08, 2018, demonstrated a left ventricular ejection fraction of 60-65%, severely dilated left and right atrium, moderate mitral valve regurgitation, trace aortic valve regurgitation, moderate tricuspid valve regurgitation, and the right ventricular systolic pressure was moderate to severely elevated at 55.7 mmHg. 2. Lower extremity edema - Lower extremity edema somewhat improved with elevation and leg wraps. - Patient's right-sided heart failure is contributing to her lower extremity edema. - Elevate legs at all times. - Lasix 80 mg IV 1 - Venous Doppler were negative for DVT - Fluid restriction 3. Right lower extremity cellulitis - Skin erythema resolved. - Continue Augmentin 500 mg/125 mg every 12 hours for total of 7 days of total antibiotic coverage.--->> Duration as noted. 4. Acute on chronic renal insufficiency>>>1.6, 07/12/18. - Creatinine continues to rise to 1.9 from 1.8 yesterday. Baseline creatinine is between 1.4 and 1.5 from old records. - Repeat BMP, mag, and phosphorus this evening. If worsening we will consider transfer to [place]. - Discuss with family possibility of Lasix worsening renal function. - Continue noninvasive ventilatory support for both her right-sided heart failure, pulmonary hypertension, and renal status. - Prognosis is guarded and was discussed with her and her daughter. 5. Atrial fibrillation with anticoagulation--<improve rate control--increase AV rishi blockade - INR is stable. - Continue to hold warfarin - Continue home metoprolol for rate control. 6. Right ankle pain - xray rt ankle demonstrates osteoarthritis - PT/OT 7. Anemia, microcytic - Hemoglobin stable at 8.6 - CBC will be monitored daily. Patient encouraged to get out of bed and into chair. Walk as much as possible. Patient will be on a cardiac 2 g sodium diet. Patient is on Flovent at home and has a slight wheeze today. I will restart her Flovent for suspected obstructive airway disease. VTE prophylaxis - patient is anticoagulated warfarin. LOS>96 Hours with response to therapy for HF. SAURABH Buenrostro, 08/13/18 to [facility]
[2018-08-12] MEDS ORDERED: Metoprolol Tartrate 5 MG/5 ML SDV IVPUSH PRN (16:27)
[2018-08-12] MEDS ORDERED: Warfarin 5 MG Tab PO ONE (18:00)
[2018-08-12] MEDS: Diltiazem IR 60 MG Tab PO SCH (21:16)
[2018-08-12] MEDS: Simvastatin 10 MG Tab PO SCH (21:16)
[2018-08-13] MEDS: Budesonide 0.5 MG/2 ML Neb Susp NEB SCH (05:54)
[2018-08-13] MEDS: Acetaminophen 325 MG Tab PO PRN (06:58)
[2018-08-13] MEDS: Amoxicillin/Clavulanate K 500-125 MG Tab PO SCH (09:00)
[2018-08-13] MEDS: Potassium Chloride 20 MEQ Tab.ER PO SCH (09:01)
[2018-08-13] MEDS: Diltiazem IR 60 MG Tab PO SCH (09:01)
[2018-08-13] MEDS: Aspirin 81 MG Tab.EC PO SCH (09:01)
[2018-08-13] MEDS: Oxybutynin 5 MG Tab.ER PO SCH (09:02)
[2018-08-13] MEDS: Metoprolol Succinate 50 MG Tab.ER PO SCH (09:02)
--- NOTE | 2018-08-13 11:13 | PCM.DCSUM1 ---
Discharge Summary - Hospital Course Free Text/Narrative:: 83 year old treated for acute decompensated HF, found to have diastolic dysfunction was admitted on 08/08/18. She was cautiously diuresed after her Cr increased with 2 doses of diuretics. That included use of meds to decrease venous return/preload as well as after load. This was hastened with the use of BiPAP at a low setting, 10/5 with 1 liter of O2. She additionally required low dose O2 at 1 l/m while awake. A 2D echo was performed, see report. The patient has preserved LVEF with grade 2 diastolic dysfunction. Lower extremities were extremely edematous, the patient showed decreased peripheral edema in spite of only two doses of diuretics. She did not readily exert herself during her stay, and once the Styles was removed often would not seek assistance to the rest room. Reportedly she had a RLE cellulitis which responded to Unasyn/Augment which was continued at DC for 3 days. PT/OT were consulted, and several additional consultants. She has been accepted to [facility] and is expected to maintain PT/OT directed activities. Minor home med changes: decreased metolazone 2.5 mg every am; lasix 40 mg BID, first dose 30 minutes after metolazone. New meds: NC-O2 1 l/m/BIPAP-10/5, 1 l/ m @ night; Augmentin 500-125 mg BID. Follow up as scheduled with PCP. Labs: INR (coumadin); BMP re: acute renal failure Primary Dx Acute decompensated HF/HfPef A Fib Acute renal failure CKD, stage 3 RLE cellulitis Pulm HTN Hypoxia HPI Initial Comments: This 83-year-old female with known diastolic heart failure was brought in to the emergency room by ambulance after having worsening of lower extremity foot pain and edema. Patient states that over the last 4-8 weeks she has had a progressively worsening lower extremity edema with a 20-30 pound weight gain. Patient was seen by her primary care provider and had her Lasix increased to 80 mg from 40 mg and started on oxybutynin due to concurrent complaints of increased urination. Patient denies any shortness of breath, cough, dyspnea on exertion, chest pain orthopnea, or PND. She sleeps on one pillow on her back. She denies any history of sleep difficulties other than having to get up to urinate. Patient also states that she has increased redness and swelling in the right lower extremity worse than left. The right lower extremity is tender and red. Patient to see cardiology for atrial fibrillation and her diastolic dysfunction. She does not know when her last echocardiogram was done. Echocardiogram done on July 21, 2014 did show an ejection fraction of 50-55% with severely dilated left and right atrium. She had mild aortic valve sclerosis with moderate mitral valve regurgitation. Moderate tricuspid valve regurgitation. Right ventricular systolic pressure was moderate to severely elevated at 59.8 mmHg. In the emergency room patient was given 40 mg of Lasix IV. Her creatinine is slightly elevated over her most recent last month of 1.3 up to 1.5. Diagnosis: Stroke: No - Discharge Data Discharge Date: 08/13/18 Discharge Disposition: DC/Tfer to [facility] 03 Condition: Good - Patient Summary/Data Consults: Consultations 08/08/18 11:20 PT Evaluation and Treatment [CONS] Routine 08/09/18 09:00 OT Evaluation and Treatment [CONS] Routine - Patient Instructions Diet: Heart Healthy Diet Activity: As Tolerated (patient is inactive and requires prompting) Driving: Do Not Drive Showering/Bathing: May Shower Notify Provider of: Fever, Increased Pain, Nausea and/or Vomiting - Discharge Plan *PRESCRIPTION DRUG MONITORING PROGRAM REVIEWED*: Not Applicable *COPY OF PRESCRIPTION DRUG MONITORING REPORT IN PATIENT RAY: Not Applicable Prescriptions/Med Rec: Amoxicillin/Clavulanate K [Augmentin 500-125 MG] 1 tab PO Q12HR #6 tablet Diltiazem HCl [Diltiazem 24Hr ER] 180 mg PO DAILY #30 tab.er.24h Furosemide [Lasix] 40 mg PO BIDDIURETIC #60 tablet metOLazone [Metolazone] 5 mg PO MO #30 tablet Metoprolol Succinate [Toprol XL 50mg] 50 mg PO DAILY #45 tab.er Home Medications: Home Meds Aspirin [Halfprin] 81 mg PO DAILY 07/21/14 [History] Losartan [Cozaar] 25 mg PO DAILY 07/21/14 [History] Warfarin [Coumadin] 5 mg PO SUMOTUTHFRSA 07/21/14 [History] Fluticasone Propionate [Flovent HFA 44 mcg] 2 puff INH BID PRN 07/29/14 [ History] Warfarin [Coumadin] 2.5 mg PO WE 07/29/14 [History] atorvaSTATin [Lipitor] 10 tab PO BEDTIME 07/29/14 [History] Potassium Chloride [Klor-Con M20] 20 meq PO BID 07/17/17 [History] Oxybutynin [Oxybutynin ER] 5 mg PO DAILY 08/08/18 [History] Acetaminophen [Acetaminophen ER] 1,300 mg PO BID PRN 08/09/18 [History] Albuterol Sulfate [Proair Respiclick] 2 puff INH Q4HR PRN 08/09/18 [History] Cholecalciferol (Vitamin D3) [Vitamin D3] 2,000 units PO DAILY 08/09/18 [History ] Sodium Chloride [Saline Nasal Magnet] 2 spray NASBOTH Q2H PRN 08/09/18 [History] Triamcinolone Acetonide [Triamcinolone Acetonide 0.1% Oint] 1 applic TOP DAILY PRN 08/09/18 [History] Amoxicillin/Clavulanate K [Augmentin 500-125 MG] 1 tab PO Q12HR #6 tablet [Rx] Diltiazem HCl [Diltiazem 24Hr ER] 180 mg PO DAILY #30 tab.er.24h 08/13/18 [Rx] Furosemide [Lasix] 40 mg PO BIDDIURETIC #60 tablet 08/13/18 [Rx] Metoprolol Succinate [Toprol XL 50mg] 50 mg PO DAILY #45 tab.er 08/13/18 [Rx] metOLazone [Metolazone] 5 mg PO MO #30 tablet 08/13/18 [Rx] Other Amb Orders: BASIC METABOLIC PANEL,BMP [CHEM] Time Frame: 08/16/18, Location: None Selected INR,PT,PROTHROMBIN TIME [COAG] Time Frame: 08/16/18, Location: None Selected Oxygen Therapy Mode: Nasal Cannula Oxygen Flow Rate (L/min): 1 (BiPAP at night 04/05) Forms: ED Department Discharge Referrals: Nara Yeager MD [Primary Care Provider] - 08/20/18 9:00 am (Please follow up with Dr. Yeager on at 0900.) - Discharge Summary/Plan Comment DC Time >30 min.: No Discharge Summary/Plan Comment: Plan:: 1. Congestive heart failure - Chest x-ray demonstrated stable vascular congestion. - I's and O's showed positive fluid balance with 1 pound weight gain. Patient was incontinent of urine, limiting accuracy of eyes and nose. - Creatinine has changed from 1.8-1.9--->>1.6 - Discontinue hydralazine and isosorbide dinitrate. - Patient be given a trial of diuresis with Lasix 80 mg IV 1. We had a long discussion in regards to possibility of worsening renal function. I offered her and her daughter transfer to [place] for a higher level of care and at this time they want to try diuresis here and if renal function, or other complication , worsens consider transfer at that time. - Continue strict I's and O's and daily weights. Follow blood pressure closely. - Echocardiogram done August 08, 2018, demonstrated a left ventricular ejection fraction of 60-65%, severely dilated left and right atrium, moderate mitral valve regurgitation, trace aortic valve regurgitation, moderate tricuspid valve regurgitation, and the right ventricular systolic pressure was moderate to severely elevated at 55.7 mmHg. 2. Lower extremity edema - Lower extremity edema somewhat improved with elevation and leg wraps. - Patient's right-sided heart failure is contributing to her lower extremity edema. - Elevate legs at all times. - Lasix 80 mg IV 1 - Venous Doppler were negative for DVT - Fluid restriction 3. Right lower extremity cellulitis - Skin erythema resolved. - Continue Augmentin 500 mg/125 mg every 12 hours for total of 7 days of total antibiotic coverage.--->> Duration as noted. 4. Acute on chronic renal insufficiency>>>1.6, 07/12/18. - Creatinine continues to rise to 1.9 from 1.8 yesterday. Baseline creatinine is between 1.4 and 1.5 from old records. - Repeat BMP, mag, and phosphorus this evening. If worsening we will consider transfer to [place]. - Discuss with family possibility of Lasix worsening renal function. - Continue noninvasive ventilatory support for both her right-sided heart failure, pulmonary hypertension, and renal status. - Prognosis is guarded and was discussed with her and her daughter. 5. Atrial fibrillation with anticoagulation--<improve rate control--increase AV rishi blockade - INR is stable. - Continue to hold warfarin - Continue home metoprolol for rate control. 6. Right ankle pain - xray rt ankle demonstrates osteoarthritis - PT/OT 7. Anemia, microcytic - Hemoglobin stable at 8.6 - CBC will be monitored daily. Patient encouraged to get out of bed and into chair. Walk as much as possible. Patient will be on a cardiac 2 g sodium diet. Patient is on Flovent at home and has a slight wheeze today. I will restart her Flovent for suspected obstructive airway disease. VTE prophylaxis - patient is anticoagulated warfarin. LOS>96 Hours with response to therapy for HF. SAURABH Buenrostro, 08/13/18 to [facility] Info Date of Service: 08/08/18 Functional Status: Reports: Pain Controlled, Tolerating Diet, Urinating - Review of Systems General: Reports: Weakness HEENT: Reports: No Symptoms Pulmonary: Reports: Shortness of Breath Cardiovascular: Reports: No Symptoms Gastrointestinal: Reports: No Symptoms Genitourinary: Reports: No Symptoms Musculoskeletal: Reports: No Symptoms Skin: Reports: No Symptoms Neurological: Reports: No Symptoms Psychiatric: Reports: No Symptoms - Patient Data Vitals - Most Recent: Last Vital Signs Temp 36.9 C 08/13/18 07:58 Pulse 95 08/13/18 09:02 Resp 24 H 08/13/18 07:58 BP 118/71 08/13/18 09:02 Pulse Ox 98 08/13/18 07:58 Weight - Most Recent: 98.702 kg I&O - Last 24 hours: Intake & Output 08/12/18 08/13/18 08/13/18 22:59 06:59 14:59 Intake Total 980 400 Balance 980 400 Lab Results - Last 24 hrs: Laboratory Results - last 24 hr 08/13/18 Range/Units 07:55 PT 18.3 H (9.5-12.1) SECONDS INR 1.70 Med Orders - Current: Current Medications Acetaminophen (Tylenol) 650 mg PO Q4H PRN PRN Reason: Pain (Mild 1-3)/fever Last Admin: 08/13/18 06:58 Dose: 650 mg Amoxicillin/Clavulanate Potassium (Augmentin 500 Mg\125 Mg) 1 tab PO Q12HR [facility] Last Admin: 08/13/18 09:00 Dose: 1 tab Aspirin (Halfprin) 81 mg PO DAILY [facility] Last Admin: 08/13/18 09:01 Dose: 81 mg Budesonide (Pulmicort) 0.5 mg NEB BIDRT [facility] Last Admin: 08/13/18 05:54 Dose: 0.5 mg Diltiazem HCl (Cardizem) 60 mg PO TID [facility] Last Admin: 08/13/18 09:01 Dose: 60 mg Lorazepam (Ativan) 0.5 mg IVPUSH Q2H PRN PRN Reason: Anxiety Metoprolol Succinate (Toprol Xl) 50 mg PO DAILY [facility] Last Admin: 08/13/18 09:02 Dose: 50 mg Metoprolol Tartrate (Lopressor) 5 mg IVPUSH Q4H PRN PRN Reason: Tachycardia Ondansetron HCl (Zofran Odt) 4 mg PO Q6H PRN PRN Reason: nausea, able to take PO Oxybutynin Chloride (Oxybutynin Er) 5 mg PO DAILY [facility] Last Admin: 08/13/18 09:02 Dose: 5 mg Potassium Chloride (Klor-Con M20) 20 meq PO BID [facility] Last Admin: 08/13/18 09:01 Dose: 20 meq Simvastatin (Zocor) 10 mg PO BEDTIME [facility] Last Admin: 08/12/18 21:16 Dose: 10 mg Sodium Chloride (Saline Flush) 10 ml FLUSH ASDIRECTED PRN PRN Reason: Keep Vein Open Warfarin Sodium (Pharmacy To Dose - Warfarin) 0 dose .XX ASDIRECTED PRN PRN Reason: RX TO DOSE WARFARIN Discontinued Medications Hydrocodone Bitart/Acetaminophen ([place] 325-5 Mg) 1 tab PO Q4H PRN PRN Reason: Pain Last Admin: 08/10/18 14:01 Dose: 1 tab Diltiazem HCl (Cardizem Cd) 180 mg PO DAILY [facility] Last Admin: 08/10/18 09:53 Dose: 180 mg Furosemide (Lasix) 40 mg IVPUSH NOW ONE Stop: 08/08/18 09:06 Last Admin: 08/08/18 09:09 Dose: 40 mg Furosemide (Lasix) Confirm Administered Dose 40 mg .ROUTE .STK-MED ONE Stop: 08/08/18 09:08 Last Admin: 08/08/18 09:11 Dose: Not Given Furosemide (Lasix) 80 mg IVPUSH NOW ONE Stop: 08/11/18 11:26 Last Admin: 08/11/18 12:27 Dose: 80 mg Hydralazine HCl (Apresoline) 10 mg PO Q8H [facility] Last Admin: 08/08/18 15:23 Dose: 10 mg Hydralazine HCl (Apresoline) 10 mg PO Q8H [facility] Last Admin: 08/09/18 08:15 Dose: 10 mg Hydralazine HCl (Apresoline) 20 mg PO Q8H [facility] Last Admin: 08/10/18 09:52 Dose: 20 mg Hydralazine HCl (Apresoline) 10 mg PO Q8H [facility] Last Admin: 08/11/18 12:38 Dose: Not Given Piperacillin Sod/Tazobactam (Sod 4.5 gm/ Sodium Chloride) 100 mls @ 200 mls/hr IV ONETIME ONE Stop: 08/08/18 11:29 Last Admin: 08/08/18 11:03 Dose: 200 mls/hr Sodium Chloride (Normal Saline) Confirm Administered Dose 100 mls @ as directed .ROUTE .STK-MED ONE Stop: 08/08/18 10:57 Last Admin: 08/08/18 11:04 Dose: Not Given Piperacillin Sod/Tazobactam (Sod 4.5 gm/ Sodium Chloride) 100 mls @ 25 mls/hr IV Q8H [facility] Last Admin: 08/10/18 03:45 Dose: 25 mls/hr Magnesium Sulfate/Dextrose 1 (gm/ Premix) 100 mls @ 100 mls/hr IV ONETIME ONE Stop: 08/09/18 10:30 Last Admin: 08/09/18 10:29 Dose: 100 mls/hr Isosorbide Dinitrate (Isordil) 10 mg PO TID [facility] Last Admin: 08/09/18 08:16 Dose: 10 mg Isosorbide Dinitrate (Isordil) 20 mg PO TID [facility] Last Admin: 08/10/18 09:53 Dose: 20 mg Isosorbide Dinitrate (Isordil) 10 mg PO TID [facility] Last Admin: 08/11/18 12:39 Dose: Not Given Losartan Potassium (Cozaar) 25 mg PO DAILY [facility] Last Admin: 08/11/18 12:38 Dose: Not Given Piperacillin Sod/Tazobactam Sod (Piperacil-Tazobact) Confirm Administered Dose 4.5 gm .ROUTE .STK-MED ONE Stop: 08/08/18 10:54 Last Admin: 08/08/18 11:04 Dose: Not Given Sodium Chloride (Saline Flush) 10 ml FLUSH ASDIRECTED PRN PRN Reason: Keep Vein Open Last Admin: 08/08/18 09:11 Dose: 10 ml Warfarin Sodium (Coumadin) 5 mg PO ONETIME ONE Stop: 08/12/18 18:01 Last Admin: 08/12/18 18:49 Dose: 5 mg - Exam Quality Assessment: Reports: Supplemental Oxygen, DVT Prophylaxis General: Reports: Alert, Oriented, Cooperative, No Acute Distress HEENT: Reports: Pupils Equal, Pupils Reactive, EOMI Neck: Reports: Trachea Midline, No JVD Lungs: Reports: Normal Respiratory Effort Cardiovascular: Reports: Regular Rate, Irregular Rhythm GI/Abdominal Exam: Normal Bowel Sounds, Soft, Non-Tender, No Organomegaly, No Distention (Female) Exam: Deferred Rectal (Female) Exam: Deferred Back Exam: Reports: Normal Inspection Extremities: Normal Inspection, Non-Tender, Normal Capillary Refill Skin: Reports: Warm Neurological: Reports: No New Focal Deficit Psy/Mental Status: Reports: Alert
[2018-08-13 12:21] VITALS: BP 106/63
[2018-08-13] MEDS ORDERED: Furosemide 40 MG Tab PO SCH (14:00)
[2018-08-13] MEDS ORDERED: Warfarin 5 MG Tab PO SCH (18:00)
== END 2018-08-13 13:15 | DRG 291 ==
LOC: JD.ED 08:30 → SUPCPDRO 08:30 → UNDOADMIN 10:51 → JD.MS 10:51
PROVIDERS: ADMIT Family Medicine; ATTEND Family Medicine
PROC: 5A09357 Assistance with Respiratory Ventilation, Less than 24 Consecutive Hours, Continuous Positive Airway Pressure (ICD-10-PCS; principal; 2018-08-11)
DX: I11.0 Hypertensive heart disease with heart failure (principal); I13.0 Hypertensive heart and chronic kidney disease with heart failure and stage 1 through stage 4 chronic kidney disease, or unspecified chronic kidney disease; N28.9 Disorder of kidney and ureter, unspecified; I50.33 Acute on chronic diastolic (congestive) heart failure; L03.115 Cellulitis of right lower limb; N17.9 Acute kidney failure, unspecified; M19.90 Unspecified osteoarthritis, unspecified site; E11.9 Type 2 diabetes mellitus without complications; E11.22 Type 2 diabetes mellitus with diabetic chronic kidney disease; N18.3 Chronic kidney disease, stage 3 (moderate); I50.813 Acute on chronic right heart failure; I48.2 Chronic atrial fibrillation; R09.02 Hypoxemia; I27.20 Pulmonary hypertension, unspecified; E78.00 Pure hypercholesterolemia, unspecified; R26.2 Difficulty in walking, not elsewhere classified; R53.1 Weakness; M79.605 Pain in left leg; M79.604 Pain in right leg; R42 Dizziness and giddiness; L53.9 Erythematous condition, unspecified; R60.0 Localized edema; R06.02 Shortness of breath; R32 Unspecified urinary incontinence; D50.9 Iron deficiency anemia, unspecified; M19.071 Primary osteoarthritis, right ankle and foot; E66.9 Obesity, unspecified; H54.7 Unspecified visual loss; H91.90 Unspecified hearing loss, unspecified ear; Z90.49 Acquired absence of other specified parts of digestive tract; Z79.01 Long term (current) use of anticoagulants; Z79.899 Other long term (current) drug therapy; Z79.82 Long term (current) use of aspirin; Z66 Do not resuscitate
CPT/HCPCS: 36415; 71045; 80053; 83880; 84484; 85025; 85610; 86140; 93005; 96374; 99285; J1940; 36600; 51702; 51798; 71046; 71046-26; 73600-26-RT; 73600-RT; 80048; 81001; 82803; 83036; 83735; 84100; 84443; 85730; 93306; 93970; 93970-26; 94640; 94660; 94760; 94761; 97110-GP; 97116-GP; 97162-GP; 97166-GO; 97530-GO; 97530-GP; A9270-GY; J2543; J3475; J7030